=== PATIENT | male | born 1975 | race Caucasian/White ===

== ENCOUNTER 2017-10-09 09:54 | Emergency (ER) | payer OTHER, SELFPAY ==
[2017-10-09] MEDS ORDERED: hydrOXYzine HCl 25 MG TAB ONE (12:15)
[2017-10-09 12:33] LABS: Absolute Lymphocytes (CBC) 2.9 K/uL (0.7-4.9); Absolute Monocytes 0.6 K/uL (0.1-1.3); Absolute Neutrophil 7.4 K/uL (1.8-8.0); Basophils % 0.7 % (0-1.3); Eosinophils % 0.5 % (0-4.4); Hematocrit 45.3 % (39.6-49.0); Lymphocytes % 26.1 % (15.3-44.8); MCH 28.7 pg (27.0-35.0); MCV 85.9 fL (80-100); MPV 8.4 fL (7.6-11.3); Monocytes % 5.5 % (3.3-12.3); RBC Red Blood Cell Count 5.27 M/uL (4.33-5.43)
--- NOTE | 2017-10-09 12:37 | RAD REPORT ---
EXAM DESCRIPTION: Asa Single View10/09/2017 12:20 pm CLINICAL HISTORY: Cough COMPARISON: 2009 FINDINGS: There appear to be postsurgical changes involving the upper lobes. The lungs appear clear of acute infiltrate. The heart is normal size IMPRESSION: No acute abnormalities displayed
[2017-10-09] MEDS ORDERED: NA CHLORIDE 0.9% 1,000 ML ONE (12:46)
[2017-10-09] MEDS ORDERED: LORazepam 2 MG/ML VIAL ONE (12:46)
[2017-10-09 12:49] LABS: BUN Blood Urea Nitrogen 10 mg/dL (6-20); Glucose Level 101 mg/dL (65-120)
[2017-10-09 12:55] LABS: Bicarbonate 23 mEq/L (21-31); Potassium 4.2 mEq/L (3.6-5.0); Sodium Level 136 mEq/L (135-145)
[2017-10-09 13:07] LABS: Blood Morphology Comment NOT SEEN (NOT SEEN); Platelet Estimate ADEQ; Urine White Blood Cell Casts OK
[2017-10-09 13:56] LABS: Barbiturates NEGATIVE; Benzodiazepines NEGATIVE; Cocaine NEGATIVE; METHAMPHETAM NEGATIVE; Opiates NEGATIVE; Phencyclidine NEGATIVE; THC Cannibis POSITIVE
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
[2017-10-09 14:23] VITALS: O2SAT 100
[2017-10-09 14:24] VITALS: BP 119/71; TEMP 98.1
[2017-10-09 14:25] LABS: Urine Blood NEGATIVE (NEG); Urine Glucose NEGATIVE (NEG); Urine Protein NEGATIVE (NEG); Urine pH 6.5 (5.0-7.0)
== END 2017-10-09 14:18 | disposition home or self-care (01) ==
LOC: ER 09:54
DX: G47.00 Insomnia, unspecified (principal); F17.210 Nicotine dependence, cigarettes, uncomplicated
CPT/HCPCS: 36415; 71045; 80048; 80307; 81003; 85025; 87804; 96361; 96374; 99284; J7030

== ENCOUNTER 2019-01-19 09:36 | Emergency (ER) | payer SELFPAY ==
--- OUTSIDE RECORDS SUMMARY | 2019-01-19 09:39 | XMS REPORT ---
:1975 [facility] Address [address] [place] [address] [address] [place] [address] Care Team Providers Name Role Phone Unavailable Unavailable Unavailable Problems This patient has no known problems. Allergies, Adverse Reactions, Alerts This patient has no known allergies or adverse reactions. Medications This patient has no known medications. Encounters Start End Encounter Admission Attending Care Care Encounter Date/Time Date/Time Type Type Clinicians Facility Department ID 2019-01-11 2019-01-11 Emergency E [id number] 14:16:00 14:16:00
--- NOTE | 2019-01-19 10:14 | RAD REPORT ---
EXAM DESCRIPTION: RAD - Chest Single View - 01/19/2019 10:03 am CLINICAL HISTORY: CHEST PAIN Chest pain. COMPARISON: Chest Single View dated 10/09/2017; CHEST PA AND LAT 2 VIEW dated 03/20/2010 FINDINGS: Portable technique limits examination quality. The lungs are grossly clear. The heart is normal in size. No displaced fractures. IMPRESSION: No acute intrathoracic process suspected.
[2019-01-19 10:20] LABS: Protime INR 0.96
[2019-01-19 10:24] LABS: Absolute Lymphocytes (CBC) 2.7 K/uL (0.7-4.9); Basophils % 0.5 % (0-1.3); Hematocrit 47.6 % (39.6-49.0); Lymphocytes % 24.7 % (15.3-44.8); MPV 7.2 fL (7.6-11.3); RBC Red Blood Cell Count 5.44 M/uL (4.33-5.43)
[2019-01-19 10:41] LABS: ALT/SGPT 32 U/L (12-78); AST/SGOT 18 U/L (15-37); Albumin 3.5 g/dL (3.4-5.0); Alkaline Phosphatase 110 U/L (45-117); BUN Blood Urea Nitrogen 9 mg/dL (7-18); Bicarbonate 25 mmol/L (21-32); Bilirubin Direct < 0.1 mg/dL (0-0.2); Bilirubin Total 0.3 mg/dL (0.2-1.0); Glucose Level 133 mg/dL (74-106); Magnesium 2.5 mg/dL (1.8-2.4); NT PRO-BNP 15 pg/mL (<125); Potassium 3.8 mmol/L (3.5-5.1); Protein, Total 7.3 g/dL (6.4-8.2); Sodium Level 135 mmol/L (136-145); Troponin (Emerg Dept Use Only) < 0.02 ng/mL (0.0-0.045)
[2019-01-19] MEDS ORDERED: SUCRALFATE 1 GM TABLET ONE (12:04)
[2019-01-19 12:11] LABS: Urine Blood NEGATIVE (NEG); Urine Glucose NEGATIVE (NEG); Urine Protein NEGATIVE (NEG); Urine pH 6.5 (5.0-7.0)
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
--- NOTE | 2019-01-19 13:36 | RAD REPORT ---
EXAM DESCRIPTION: CT - Chest For Pe Angio - 01/19/2019 1:27 pm CLINICAL HISTORY: Chest pain. Cough;Chest pain COMPARISON: No comparisons TECHNIQUE: CT angiogram of the pulmonary arteries was performed with MIP. All CT scans are performed using dose optimization technique as appropriate and may include automated exposure control or mA/KV adjustment according to patient size. FINDINGS: No evidence of pulmonary thromboembolism. No acute aortic finding demonstrated. Interstitial markings are prominent which can indicate interstitial pneumonia. No significant pericardial or pleural fluid. No concerning bony finding. Small hiatal hernia. IMPRESSION: No evidence of pulmonary thromboembolism. Interstitial pneumonia/ bronchitis pattern is present.
[2019-01-19 14:02] LABS: Urine Bacteria NONE SEEN /HPF (NONE SEEN); Urine RBC NONE SEEN /HPF (NONE SEEN)
[2019-01-19 14:03] LABS: Urine Culture Reflex Order NOT NEEDED
[2019-01-19] MEDS ORDERED: CEFTRIAXONE/SWI 1gm 1 GM/10 ML SYR ONE (15:06)
[2019-01-19 16:16] VITALS: BP 125/78; TEMP 98; O2SAT 100
--- NOTE | 2019-01-20 10:52 | EKG ---
Test Date: 2019-01-19 Test Time: 09:50:35 Reinstatement Clerk: JORGE MEASUREMENT RESULTS: Intervals: Rate: 89 KS: 160 QRSD: 80 QT: 360 QTc: 438 [place]: P: 35 KS: 160 QRS: 94 T: 12 INTERPRETIVE STATEMENTS: Normal sinus rhythm Rightward axis Borderline ECG Compared to ECG 10/17/2004 14:28:00 Right-axis deviation now present Electronically Signed On 01-20-19 10:51:54 CDT by David Garcia
== END 2019-01-19 15:53 | disposition home or self-care (01) ==
LOC: ER 09:36
DX: J15.9 Unspecified bacterial pneumonia (principal); Z72.0 Tobacco use
CPT/HCPCS: 36415; 71045; 71275; 80048; 80076; 81003; 81015; 83735; 83880; 84443; 84484; 85025; 85379; 85610; 93005; 96365; 99285; J0696; Q9967

== ENCOUNTER 2019-02-11 12:10 | Emergency (ER) | payer SELFPAY ==
--- OUTSIDE RECORDS SUMMARY | 2019-02-11 12:12 | XMS REPORT ---
:1975 [facility] Address [address] [place] [address] [address] [place] [address] Care Team Providers Name Role Phone Unavailable [...]
[2019-02-11] MEDS ORDERED: IPRATROPIUM BROM 0.5MG/2.5ML ONE (12:38)
[2019-02-11] MEDS ORDERED: METHYLPREDNISOLONE 125 MG INJ ONE (12:38)
[2019-02-11] MEDS ORDERED: Levofloxacin 750mg IV 750 MG/150 ML BAG IV ONE (12:38)
[2019-02-11] MEDS ORDERED: ALBUTEROL 2.5 MG/3 ML NEB SOL ONE (12:38)
[2019-02-11 13:07] LABS: Absolute Lymphocytes (CBC) 1.8 K/uL (0.7-4.9); Basophils % 0.7 % (0-1.3); Lymphocytes % 20.1 % (15.3-44.8); MPV 7.5 fL (7.6-11.3); RBC Red Blood Cell Count 5.34 M/uL (4.33-5.43)
[2019-02-11 13:16] LABS: Protime INR 0.95
[2019-02-11] MEDS ORDERED: FAMOTIDINE 20 MG/2 ML VIAL IV ONE (13:23)
[2019-02-11] MEDS ORDERED: DIPHENHYDRAMINE 50 MG/ML VIAL ONE (13:23)
[2019-02-11] MEDS ORDERED: AZITHROMYCIN 250 MG TAB ONE (13:32)
[2019-02-11] MEDS ORDERED: CEFTRIAXONE/SWI 1gm 1 GM/10 ML SYR ONE (13:32)
[2019-02-11 13:34] LABS: ALT/SGPT 37 U/L (12-78); AST/SGOT 26 U/L (15-37); Albumin 3.8 g/dL (3.4-5.0); Alkaline Phosphatase 126 U/L (45-117); BUN Blood Urea Nitrogen 7 mg/dL (7-18); Bicarbonate 24 mmol/L (21-32); Bilirubin Direct 0.2 mg/dL (0-0.2); Bilirubin Total 0.6 mg/dL (0.2-1.0); Glucose Level 92 mg/dL (74-106); Magnesium 2.5 mg/dL (1.8-2.4); NT PRO-BNP 116 pg/mL (<125); Potassium 3.7 mmol/L (3.5-5.1); Protein, Total 7.5 g/dL (6.4-8.2); Sodium Level 138 mmol/L (136-145); Troponin (Emerg Dept Use Only) < 0.02 ng/mL (0.0-0.045)
--- NOTE | 2019-02-11 13:47 | EKG ---
Test Date: 2019-02-11 Test Time: 13:05:37 Cloth Bleaching Range Operator Chief: MARISSA MEASUREMENT RESULTS: Intervals: Rate: 78 SD: 162 QRSD: 80 QT: 384 QTc: 437 [place]: P: 64 SD: 162 QRS: 75 T: 44 INTERPRETIVE STATEMENTS: Normal sinus rhythm Normal ECG Compared to ECG 01/19/2019 09:50:35 Right-axis deviation no longer present Electronically Signed On 02-11-19 13:47:03 CDT by Ronen Rodriguez
--- NOTE | 2019-02-11 13:48 | RAD REPORT ---
EXAM DESCRIPTION: RAD - Chest Single View - 02/11/2019 1:03 pm CLINICAL HISTORY: Cough, possible lung infection COMPARISON: January 19 TECHNIQUE: AP portable chest image was obtained 1301 hours . FINDINGS: No focal lung parenchymal process seen. Lung markings are similar to comparison. Heart and vasculature are normal. No measurable pleural effusion and no pneumothorax. No acute bony abnormalit y seen. No acute aortic findings suspected. IMPRESSION: No acute cardiopulmonary process. No significant interval change.
--- NOTE | 2019-02-11 14:04 | RAD REPORT ---
EXAM DESCRIPTION: CT - Chest For Pe Angio - 02/11/2019 1:50 pm CLINICAL HISTORY: Cough, congestion, COPD, shortness of breath COMPARISON: Portable chest same date, PE study January 19 TECHNIQUE: Dynamically enhanced 3 mm thick images of the chest were obtained during administration o f approximately 150mL Isovue 370 IV contrast. Coronal and oblique MIP reconstruction images were gene rated and reviewed. Exam utilizes a protocol to evaluate the pulmonary arterial tree. All CT scans are performed using dose optimization technique as appropriate and may include automated exposure control or mA/KV adjustment according to patient size. FINDINGS: No pulmonary emboli are identified. The aorta as imaged shows no acute or suspicious finding. No pericardial thickening or effusion. No new mass or consolidation. The prominent interstitial edema or infiltrate pattern seen January 19 is not present on the current examination. Hazy ground-glass opacities along the posterior aspect of eac h lung field, believed to be atelectasis, much less pronounced than seen previously. No pleural effus ion or pleural thickening. No mediastinal or hilar suspicious masses. No chest wall masses or abnormal axillary lymphadenopathy. Small hiatal hernia is present. IMPRESSION: No pulmonary emboli identified. No new or progressive mass or consolidation. Lung markings and atelectasis changes in the posterior l antonia costa are less prominent than seen January 19.
--- NOTE | 2019-02-11 14:13 | ER ---
Nurse's Notes [facility] Name: Franco Thompson Age: 43 yrs Sex: Male : 1975 Arrival Date: 02/11/2019 Time: 12:16 Bed 8 Private MD: Diagnosis: Bronchitis, not specified as acute or chronic;Tobacco abuse counseling;Tobacco use Presentation: 02/11 12:21 Presenting complaint: Patient states: I have been fighting with this lung infection for la1 4 weeks, I took zithromax already and three of someone elses levaquin at home but its just not getting better. Transition of care: patient was not received from another setting of care. Onset of symptoms was February 11, 2019. Risk Assessment: Do you want to hurt yourself or someone else? Patient reports no desire to harm self or others. Initial Sepsis Screen: Does the patient meet any 2 criteria? No. Patient's initial sepsis screen is negative. Does the patient have a suspected source of infection? No. Patient's initial sepsis screen is negative. Care prior to arrival: None. 12:21 Method Of Arrival: Ambulatory la1 12:21 Acuity: NISSA 3 la1 Historical: - Allergies: 13:24 Levaquin; sv - PMHx: 12:20 neuropathy; Pneumothorax; la1 - PSHx: 12:20 lung sx; la1 - Immunization history:: Adult Immunizations up to date. - Social history:: Smoking status: Smoking status: Patient uses tobacco products, smokes one-half pack cigarettes per day. - Ebola Screening: : No symptoms or risks identified at this time. - Family history:: not pertinent. Screenin:00 Abuse screen: Denies threats or abuse. Denies injuries from another. Nutritional sv screening: No deficits noted. Tuberculosis screening: No symptoms or risk factors identified. Fall Risk None identified. Assessment: 12:40 General: Appears in no apparent distress. comfortable, slender, well groomed, well sv developed, Behavior is calm, cooperative, appropriate for age. Pain: Denies pain. Neuro: Level of Consciousness is awake, alert, obeys commands, Oriented to person, place, time, situation, Moves all extremities. Full function Gait is steady, Speech is normal. Cardiovascular: Heart tones S1 S2 present Patient's skin is warm and dry. Pulses are 3+ in right radial artery and left radial artery Rhythm is sinus rhythm. Respiratory: Airway is patent Respiratory effort is even, unlabored, Respiratory pattern is regular, symmetrical, Breath sounds are diminished bilaterally. Derm: Skin is pink, warm \T\ dry. Musculoskeletal: Range of motion: intact in all extremities. 13:20 Reassessment: Patient appears in no apparent distress at this time. Patient and/or sv family updated on plan of care and expected duration. Pain level reassessed. Patient is alert, oriented x 3, equal unlabored respirations, skin warm/dry/pink. 13:32 Reassessment: Pt c/o sudden SOB and itching, hives noted to left arm. NAD, VSS. hb Levofloxacin stopped, Dr. Murdock and Masha RODRIGUES notified. Orders given. 14:09 Reassessment: Patient appears in no apparent distress at this time. Patient and/or sv family updated on plan of care and expected duration. Pain level reassessed. Patient is alert, oriented x 3, equal unlabored respirations, skin warm/dry/pink. 14:30 Reassessment: Pt up for discharge, but Rocephin just given and will ensure no reaction sv to it and then will give Zithromax. 15:45 Reassessment: Patient appears in no apparent distress at this time. Patient and/or sv family updated on plan of care and expected duration. Pain level reassessed. Patient is alert, oriented x 3, equal unlabored respirations, skin warm/dry/pink. Patient states feeling better. Patient states symptoms have improved. Vital Signs: 12:21 BP 158 / 100; Pulse 88; Resp 16; Temp 98.4; Pulse Ox 98% on R/A; Weight 77.11 kg; la1 Height 6 ft. 1 in. (185.42 cm); 13:01 BP 151 / 91; Pulse 83; Resp 18; Pulse Ox 100% on Nebulizer Mask; sv 14:12 BP 126 / 81; Pulse 101; Resp 23; Pulse Ox 99% on 2 lpm NC; sv 15:18 BP 133 / 79; Pulse 91; Resp 21; Pulse Ox 96% on R/A; sv 12:21 Body Mass Index 22.43 (77.11 kg, 185.42 cm) la1 ED Course: 12:16 Patient arrived in ED. cf2 12:20 Arm band placed on left wrist. la1 12:22 Triage completed. la1 12:24 Mukul Murdock MD is Attending Physician. jarod 12:35 Patient has correct armband on for positive identification. Bed in low position. Call sv light in reach. hydration plant operator on. Pulse ox on. NIBP on. Door closed. Head of bed elevated. 12:35 First set of blood cultures drawn by me. jb1 12:37 EKG done, by special procedures technologist. reviewed by Mukul Murdock MD. vh 12:40 Masha Evangelista, LILIA is Primary Nurse. sv 12:50 Second set of blood cultures drawn by me. jb1 12:54 Initial lab(s) drawn, by nd, sent to lab. Inserted saline lock: 22 gauge in left jb1 forearm, using aseptic technique. Blood collected. 13:00 X-ray(s) taken. sv 13:01 X-ray completed. Portable x-ray completed in exam room. Patient tolerated procedure jb2 well. 13:03 XRAY Chest (1 view) In Process Unspecified. EDMS 13:[address] Scan. sv 13:55 CT Chest For PE Angio In Process Unspecified. EDMS 15:47 No provider procedures requiring assistance completed. IV discontinued, intact, sv bleeding controlled, No redness/swelling at site. Pressure dressing applied. Administered Medications: Discontinued: levofloxacin 750 mg 150 ml IVPB once over 90 mins 12:52 Drug: Albuterol - atroVENT (3:1) (2.5 mg - 0.5 mg) 3 ml Route: Nebulizer; sv 13:31 Follow up: Response: No adverse reaction sv 12:52 Drug: SOLU-Medrol 125 mg Route: IVP; Site: left forearm; sv 13:26 Follow up: Response: No adverse reaction sv 12:59 Drug: levofloxacin 750 mg Volume: 150 ml; Route: IVPB; Infused Over: 90 mins; Site: sv left forearm; 13:26 Drug: Benadryl 50 mg Route: IVP; Site: left forearm; la1 14:12 Follow up: Response: No adverse reaction sv 13:26 Drug: Pepcid 20 mg Route: IVP; Site: left forearm; la1 14:12 Follow up: Response: No adverse reaction sv 14:09 Drug: Rocephin 1 grams Route: IV; Rate: per protocol; Site: left forearm; sv 14:11 Follow up: Response: No adverse reaction; IV Status: Completed infusion; IV Intake: 10mlsv 15:14 Drug: Zithromax 500 mg Route: PO; sv 15:44 Follow up: Response: No adverse reaction sv Intake: 14:11 IV: 10ml; Total: 10ml. sv Outcome: 14:12 Discharge ordered by . jarod 15:46 Discharged to home ambulatory, with family. sv 15:46 Condition: stable 15:46 Condition: improved 15:46 Discharge instructions given to patient, family, Instructed on discharge instructions, follow up and referral plans. medication usage, Demonstrated understanding of instructions, follow-up care, medications, Prescriptions given X 4. 15:47 Patient left the ED. sv Signatures: Dispatcher [employer] EDMS Eric Chakraborty1 Masha Evangelista RN RN Mukul Murdock MD MD cha Buechter, Jesse jb2 Attema, Lee, RN RN laArlette Stein Heather, RN RN Mohinder Martínez cf2 Corrections: (The following items were deleted from the chart) 13:24 12:20 Allergies: No Known Allergies; la1 sv
--- NOTE | 2019-02-11 14:14 | EDPHYS ---
Physician Documentation [facility] Name: Franco Thompson Age: 43 yrs Sex: Male : 1975 Arrival Date: 02/11/2019 Time: 12:16 Bed 8 Private MD: ED Physician Mukul Murdock HPI: 02/11 12:39 This 43 yrs old Male presents to ER via Ambulatory with complaints of jarod Shortness Of Breath. 12:39 The patient has shortness of breath at rest, with light activity. Onset: The jarod symptoms/episode began/occurred 3 day(s) ago. Duration: The symptoms are continuous, and are steadily getting worse. The patient's shortness of breath has no apparent modifying factors. Associated signs and symptoms: The patient has no apparent associated signs or symptoms. Severity of symptoms: At their worst the symptoms were mild in the emergency department the symptoms are unchanged. The patient has experienced similar episodes in the past, multiple times. Historical: - Allergies: 13:24 Levaquin; sv - PMHx: 12:20 neuropathy; Pneumothorax; la1 - PSHx: 12:20 lung sx; la1 - Immunization history:: Adult Immunizations up to date. - Social history:: Smoking status: Smoking status: Patient uses tobacco products, smokes one-half pack cigarettes per day. - Ebola Screening: : No symptoms or risks identified at this time. - Family history:: not pertinent. ROS: 12:39 Constitutional: Negative for fever, chills, and weight loss, Eyes: Negative for injury, jarod pain, redness, and discharge, ENT: Negative for injury, pain, and discharge, Neck: Negative for injury, pain, and swelling, Cardiovascular: Negative for chest pain, palpitations, and edema, Abdomen/GI: Negative for abdominal pain, nausea, vomiting, diarrhea, and constipation, Back: Negative for injury and pain, : Negative for injury, bleeding, discharge, and swelling, MS/Extremity: Negative for injury and deformity, Skin: Negative for injury, rash, and discoloration, Neuro: Negative for headache, weakness, numbness, tingling, and seizure, Psych: Negative for depression, anxiety, suicide ideation, homicidal ideation, and hallucinations, Allergy/Immunology: Negative for hives, rash, and allergies, Endocrine: Negative for neck swelling, polydipsia, polyuria, polyphagia, and marked weight changes, Hematologic/Lymphatic: Negative for swollen nodes, abnormal bleeding, and unusual bruising. 12:39 Respiratory: Positive for cough, shortness of breath, wheezing, expiratory. Exam: 12:39 Constitutional: This is a well developed, well nourished patient who is awake, alert, jarod and in no acute distress. Head/Face: Normocephalic, atraumatic. Eyes: Pupils equal round and reactive to light, extra-ocular motions intact. Lids and lashes normal. Conjunctiva and sclera are non-icteric and not injected. Cornea within normal limits. Periorbital areas with no swelling, redness, or edema. ENT: Nares patent. No nasal discharge, no septal abnormalities noted. Tympanic membranes are normal and external auditory canals are clear. Oropharynx with no redness, swelling, or masses, exudates, or evidence of obstruction, uvula midline. Mucous membranes moist. Neck: Trachea midline, no thyromegaly or masses palpated, and no cervical lymphadenopathy. Supple, full range of motion without nuchal rigidity, or vertebral point tenderness. No Meningismus. Chest/axilla: Normal chest wall appearance and motion. Nontender with no deformity. No lesions are appreciated. Cardiovascular: Regular rate and rhythm with a normal S1 and S2. No gallops, murmurs, or rubs. Normal PMI, no JVD. No pulse deficits. Abdomen/GI: Soft, non-tender, with normal bowel sounds. No distension or tympany. No guarding or rebound. No evidence of tenderness throughout. Back: No spinal tenderness. No costovertebral tenderness. Full range of motion. Skin: Warm, dry with normal turgor. Normal color with no rashes, no lesions, and no evidence of cellulitis. MS/ Extremity: Pulses equal, no cyanosis. Neurovascular intact. Full, normal range of motion. Neuro: Awake and alert, GCS 15, oriented to person, place, time, and situation. Cranial nerves II-XII grossly intact. Motor strength 5/5 in all extremities. Sensory grossly intact. Cerebellar exam normal. Normal gait. Psych: Awake, alert, with orientation to person, place and time. Behavior, mood, and affect are within normal limits. 12:39 Respiratory: the patient does not display signs of respiratory distress, Respirations: normal, Breath sounds: bronchial sounds, decreased breath sounds, rhonchi, wheezing: inspiratory expiratory 12:41 Musculoskeletal/extremity: DVT Exam: No signs of deep vein thrombosis. no pain, no jarod swelling, no tenderness, negative Homans' sign noted on exam, no appreciated bluish discoloration, no erythema, no increased warmth. Vital Signs: 12:21 BP 158 / 100; Pulse 88; Resp 16; Temp 98.4; Pulse Ox 98% on R/A; Weight 77.11 kg; la1 Height 6 ft. 1 in. (185.42 cm); 13:01 BP 151 / 91; Pulse 83; Resp 18; Pulse Ox 100% on Nebulizer Mask; sv 14:12 BP 126 / 81; Pulse 101; Resp 23; Pulse Ox 99% on 2 lpm NC; sv 15:18 BP 133 / 79; Pulse 91; Resp 21; Pulse Ox 96% on R/A; sv 12:21 Body Mass Index 22.43 (77.11 kg, 185.42 cm) la1 MDM: 12:24 Patient medically screened. [facility] 12:41 Data reviewed: vital signs, nurses notes, lab test result(s), EKG, radiologic studies, [facility] CT scan, plain films. 02/11 12:35 Order name: Basic Metabolic Panel; Complete Time: 13:40 [facility] 02/11 12:35 Order name: CBC with Diff; Complete Time: 13:22 [facility] 02/11 12:35 Order name: LFT's; Complete Time: 13:40 [facility] 02/11 12:35 Order name: Magnesium; Complete Time: 13:40 [facility] 02/11 12:35 Order name: NT PRO-BNP; Complete Time: 13:40 [facility] 02/11 12:35 Order name: PT-INR; Complete Time: 13:22 [facility] 02/11 12:35 Order name: Troponin (emerg Dept Use Only); Complete Time: 13:40 [facility] 02/11 12:35 Order name: XRAY Chest (1 view); Complete Time: 14:12 [facility] 02/11 12:35 Order name: CT Chest For PE Angio; Complete Time: 14:12 [facility] 02/11 12:35 Order name: Blood Culture Adult (2) [facility] 02/11 12:35 Order name: EKG; Complete Time: 12:37 [facility] 02/11 12:35 Order name: Cardiac monitoring; Complete Time: 12:55 [facility] 02/11 12:35 Order name: EKG - Nurse/Tech; Complete Time: 13:04 [facility] 02/11 12:35 Order name: IV Saline Lock; Complete Time: 12:55 [facility] 02/11 12:35 Order name: Labs collected and sent; Complete Time: 12:55 [facility] 02/11 12:35 Order name: O2 Per Protocol; Complete Time: 12:55 [facility] 02/11 12:35 Order name: O2 Sat Monitoring; Complete Time: 12:55 [facility] Administered Medications: Discontinued: levofloxacin 750 mg 150 ml IVPB once over 90 mins 12:52 Drug: Albuterol - atroVENT (3:1) (2.5 mg - 0.5 mg) 3 ml Route: Nebulizer; sv 13:31 Follow up: Response: No adverse reaction sv 12:52 Drug: SOLU-Medrol 125 mg Route: IVP; Site: left forearm; sv 13:26 Follow up: Response: No adverse reaction sv 12:59 Drug: levofloxacin 750 mg Volume: 150 ml; Route: IVPB; Infused Over: 90 mins; Site: sv left forearm; 13:26 Drug: Benadryl 50 mg Route: IVP; Site: left forearm; la1 14:12 Follow up: Response: No adverse reaction sv 13:26 Drug: Pepcid 20 mg Route: IVP; Site: left forearm; la1 14:12 Follow up: Response: No adverse reaction sv 14:09 Drug: Rocephin 1 grams Route: IV; Rate: per protocol; Site: left forearm; sv 14:11 Follow up: Response: No adverse reaction; IV Status: Completed infusion; IV Intake: 10mlsv 15:14 Drug: Zithromax 500 mg Route: PO; sv 15:44 Follow up: Response: No adverse reaction sv Disposition: 02/11/19 14:12 Discharged to Home. Impression: Bronchitis, not specified as acute or chronic, Tobacco abuse counseling, Tobacco use. - Condition is Stable. - Discharge Instructions: Acute Bronchitis, Adult, How to Use an Inhaler, Steps to Quit Smoking, Smoking Hazards, Upper Respiratory Infection, Adult, Upper Respiratory Infection, Adult, Njhi-ce-Shuf, Steps to Quit Smoking, Mlba-on-Fvwp. - Prescriptions for Cheratussin AC 10- 100 mg/5 mL Oral liquid - take 10 milliliter by ORAL route every 4 hours; 150 milliliter. Prednisone 20 mg Oral Tablet - take 2 tablet by ORAL route once daily for 5 days; 10 tablet. Albuterol Sulfate 90 mcg/actuation - inhale 1-2 puff by INHALATION route every 4-6 hours; 1 Inhaler. Zithromax 500 mg Oral Tablet - take 1 tablet by ORAL route once daily for 4 days; 4 tablet. - Medication Reconciliation Form, Thank You Letter, Antibiotic Education, Prescription Opioid Use form. - Follow up: Private Physician; When: 2 - 3 days; Reason: Recheck today's complaints, Continuance of care, Re-evaluation by your physician. - Problem is new. - Symptoms have improved. Signatures: Dispatcher [employer] Masha Arteaga RN RN Mukul Santos MD MD cha Attema, Lee, RN RN la1 Corrections: (The following items were deleted from the chart) 13:24 12:20 Allergies: No Known Allergies; la1 sv 15:47 14:12 02/11/2019 14:12 Discharged to Home. Impression: Bronchitis, not specified as sv acute or chronic; Tobacco abuse counseling; Tobacco use. Condition is Stable. Discharge Instructions: Acute Bronchitis, Adult, How to Use an Inhaler, Steps to Quit Smoking, Smoking Hazards, Upper Respiratory Infection, Adult, Upper Respiratory Infection, Adult, Ofwh-re-Jfwi, Steps to Quit Smoking, Xuqo-gh-Wifs. Prescriptions for Cheratussin AC 10-100 mg/5 mL Oral liquid - take 10 milliliter by ORAL route every 4 hours; 150 milliliter, Prednisone 20 mg Oral Tablet - take 2 tablet by ORAL route once daily for 5 days; 10 tablet, Albuterol Sulfate 90 mcg/actuation - inhale 1-2 puff by INHALATION route every 4-6 hours; 1 Inhaler, Zithromax 500 mg Oral Tablet - take 1 tablet by ORAL route once daily for 4 days; 4 tablet. and Forms are Medication Reconciliation Form, Thank You Letter, Antibiotic Education, Prescription Opioid Use. Follow up: Private Physician; When: 2 - 3 days; Reason: Recheck today's complaints, Continuance of care, Re-evaluation by your physician. Problem is new. Symptoms have improved. jarod
[2019-02-11 17:04] VITALS: TEMP 98.4
[2019-02-11 17:07] VITALS: BP 133/79; O2SAT 96
== END 2019-02-11 15:47 | disposition home or self-care (01) ==
LOC: ER 12:10
DX: J40 Bronchitis, not specified as acute or chronic (principal); Z71.6 Tobacco abuse counseling; Z88.1 Allergy status to other antibiotic agents
CPT/HCPCS: 36415; 71045; 71275; 80048; 80076; 83735; 83880; 84484; 85025; 85610; 87040; 93005; 94640; 96374; 96375; 99285; J0696; J2930; Q9967

== ENCOUNTER 2019-06-21 13:17 | Emergency (ER) | payer SELFPAY ==
--- OUTSIDE RECORDS SUMMARY | 2019-06-21 13:25 | XMS REPORT ---
:1975 [facility] Address [address] [place] [address] [address] [place] [address] Care Team Providers Name Role Phone Unavailable [...]
[2019-06-21] MEDS ORDERED: HYDROCODONE/APAP 7.5/325 MG TAB ONE (14:46)
--- NOTE | 2019-06-21 14:57 | RAD REPORT ---
EXAM DESCRIPTION: RAD - Hand Right 3 View - 06/21/2019 2:39 pm CLINICAL HISTORY: Right hand pain, trauma COMPARISON: None. FINDINGS: Distal fifth metacarpal fracture is present with minimal 15 degree ventral angulation defo rmity. No measurable distraction. No other fracture change. No other acute bone or joint finding. No foreign body or other soft tissue abnormality. IMPRESSION: Distal fifth metacarpal fracture right hand. Minimal ventral angulation deformity.
--- NOTE | 2019-06-21 15:11 | ER ---
Nurse's Notes [facility] Name: Franco Thompson Age: 43 yrs Sex: Male : 1975 Arrival Date: 06/21/2019 Time: 13:18 Bed 13 Private MD: Diagnosis: right 5th MCP fracture Presentation: 06/21 13:36 Presenting complaint: Patient states: Righthand pain after hitting/punching a hard sg surface. Transition of care: patient was not received from another setting of care. Onset of symptoms was June 21, 2019. Risk Assessment: Do you want to hurt yourself or someone else? Patient reports no desire to harm self or others. Initial Sepsis Screen: Does the patient meet any 2 criteria? No. Patient's initial sepsis screen is negative. Does the patient have a suspected source of infection? No. Patient's initial sepsis screen is negative. Care prior to arrival: None. 13:36 Method Of Arrival: Ambulatory sg 13:36 Acuity: NISSA 4 sg 13:36 Note pt loud and cursing at this time due to pain in the hand, will obtain VS once pt sg calms and quiets. Triage Assessment: 13:39 General: Appears uncomfortable, slender, well groomed, well developed, well nourished, sg Behavior is cooperative, agitated. Pain: Complains of pain in left hand. Musculoskeletal: Circulation, motion, and sensation intact. Range of motion: intact in all extremities. 15:00 Injury Description: Abrasion sustained to right hand. ca1 Historical: - Allergies: 13:36 Levaquin; sg - PMHx: 13:36 neuropathy; Pneumothorax; sg - PSHx: 13:36 lung sx; sg - Immunization history:: Adult Immunizations not up to date. - Social history:: Smoking status: Patient uses tobacco products. - Ebola Screening: : Patient negative for fever greater than or equal to 101.5 degrees Fahrenheit, and additional compatible Ebola Virus Disease symptoms Patient denies exposure to infectious person Patient denies travel to an Ebola-affected area in the 21 days before illness onset No symptoms or risks identified at this time. Screenin:20 Abuse screen: Denies threats or abuse. Denies injuries from another. Nutritional ca1 screening: No deficits noted. Tuberculosis screening: No symptoms or risk factors identified. Fall Risk None identified. Assessment: 14:20 General: Appears in no apparent distress. comfortable, Behavior is calm, cooperative, ca1 appropriate for age. Pain: Complains of pain in right hand Pain currently is 8 out of 10 on a pain scale. Neuro: Level of Consciousness is awake, alert, obeys commands, Oriented to person, place, time, situation, Appropriate for age. Derm: Skin is intact, is healthy with good turgor, Skin is pink, warm \T\ dry. Musculoskeletal: Circulation, motion, and sensation intact. Capillary refill < 3 seconds, Range of motion: limited in PIP of right index finger, MCP of right index finger, PIP of right middle finger, MCP of right middle finger, PIP of right ring finger, MCP of right ring finger, PIP of right little finger and MCP of right little finger. 15:45 Reassessment: splint checked by rei Angela to dc home. hb Vital Signs: 14:53 BP 146 / 86; Pulse 122; Resp 17 S; Pulse Ox 95% on R/A; Weight 70.31 kg (R); Height 6 ca1 ft. 1 in. (185.42 cm) (R); Pain 8/10; 14:53 Body Mass Index 20.45 (70.31 kg, 185.42 cm) ca1 ED Course: 13:18 Patient arrived in ED. mr 13:35 Arm band placed on. sg 13:37 Triage completed. sg 14:05 Patient's name was called from ER lobby. No response. hb 14:18 Terrie Tian, RN is Primary Nurse. ca1 14:18 Benjamin Benton MD is Attending Physician. ps1 14:20 Patient has correct armband on for positive identification. Bed in low position. Call ca1 light in reach. Side rails up X 1. Pulse ox on. NIBP on. 14:20 No provider procedures requiring assistance completed. Patient did not have IV access ca1 during this emergency room visit. 14:37 Hand Right 3 View XRAY In Process Unspecified. EDMS 15:09 Arvind Richmond MD is Referral Physician. ps1 15:38 Orthoglass splint: Ulnar gutter/Boxer splint applied on right forearm. mh5 Administered Medications: 14:45 Drug: [place] (7.5 mg-325 mg) 1 tabs {Note: RASS - 0.} Route: PO; ca1 15:43 Follow up: Response: No adverse reaction hb Outcome: 15:09 Discharge ordered by . ps1 15:47 Discharged to home ambulatory, with family. hb 15:47 Condition: stable 15:47 Discharge instructions given to patient, family, Instructed on discharge instructions, follow up and referral plans. medication usage, splint care Demonstrated understanding of instructions, follow-up care, medications, splint care, Prescriptions given X 1. 15:48 Patient left the ED. hb Signatures: Dispatcher [employer] EDMS Gerardo Bond RN RN sg Rivera, Mary mr Baxter, Heather, RN RN hb Martinez, Maria [facility] Benjamin Benton MD MD ps1 Terrie Tian RN RN ca1 Corrections: (The following items were deleted from the chart) 15:54 13:36 Presenting complaint: Patient states: Left hand pain after hitting/punching a sg hard surface sg
--- NOTE | 2019-06-21 15:11 | EDPHYS ---
Physician Documentation [facility] Name: Franco Thompson Age: 43 yrs Sex: Male : 1975 Arrival Date: 06/21/2019 Time: 13:18 Bed 13 Private MD: ED Physician Benjamin Benton HPI: 06/21 15:11 This 43 yrs old Male presents to ER via Ambulatory with complaints of Hand ps1 Injury. 15:11 patient got upset and punched a wall. Patient has pain at 5th Metacarpal. Normal ps1 sensation. Pain with palpation. Closed deformity. Pain is rated as severe with movement. . Historical: - Allergies: 13:36 Levaquin; sg - PMHx: 13:36 neuropathy; Pneumothorax; sg - PSHx: 13:36 lung sx; sg - Immunization history:: Adult Immunizations not up to date. - Social history:: Smoking status: Patient uses tobacco products. - Ebola Screening: : Patient negative for fever greater than or equal to 101.5 degrees Fahrenheit, and additional compatible Ebola Virus Disease symptoms Patient denies exposure to infectious person Patient denies travel to an Ebola-affected area in the 21 days before illness onset No symptoms or risks identified at this time. ROS: 15:11 Constitutional: Negative for fever, chills, and weight loss, Eyes: Negative for injury, ps1 pain, redness, and discharge, Cardiovascular: Negative for chest pain, palpitations, and edema, Respiratory: Negative for shortness of breath, cough, wheezing, and pleuritic chest pain, Abdomen/GI: Negative for abdominal pain, nausea, vomiting, diarrhea, and constipation, Skin: Negative for injury, rash, and discoloration, Neuro: Negative for headache, weakness, numbness, tingling, and seizure. 15:11 MS/extremity: Positive for injury or acute deformity, tenderness, of the MCP of right little finger. Exam: 15:11 Constitutional: This is a well developed, well nourished patient who is awake, alert, ps1 and in no acute distress. Head/Face: Normocephalic, atraumatic. Eyes: Pupils equal round and reactive to light, extra-ocular motions intact. Lids and lashes normal. Conjunctiva and sclera are non-icteric and not injected. ENT: Nares patent. No nasal discharge, no septal abnormalities noted. Tympanic membranes are normal and external auditory canals are clear. Oropharynx with no redness, swelling, or masses, exudates, or evidence of obstruction, uvula midline. Mucous membranes moist. Cardiovascular: Regular rate and rhythm. No gallops, murmurs, or rubs. Normal PMI, no JVD. No pulse deficits. Respiratory: Lungs have equal breath sounds bilaterally, clear to auscultation and percussion. No rales, rhonchi or wheezes noted. No increased work of breathing, no retractions or nasal flaring. Abdomen/GI: Soft, non-tender, with normal bowel sounds. No distension or tympany. No guarding or rebound. No evidence of tenderness throughout. Skin: Warm, dry with normal turgor. Normal color with no rashes, no lesions, and no evidence of cellulitis. Neuro: Awake and alert, GCS 15, oriented to person, place, time, and situation. Cranial nerves II-XII grossly intact. Sensory grossly intact. 15:11 Musculoskeletal/extremity: Extremities: grossly normal except: noted in the MCP of right middle finger: deformity, pain. Vital Signs: 14:53 BP 146 / 86; Pulse 122; Resp 17 S; Pulse Ox 95% on R/A; Weight 70.31 kg (R); Height 6 ca1 ft. 1 in. (185.42 cm) (R); Pain 8/10; 14:53 Body Mass Index 20.45 (70.31 kg, 185.42 cm) ca1 Procedures: 15:16 Splinting: using Orthoglass splint, wrist splint, applied by nurse. Examined by me, ps1 post splint application: neurovascular intact, 2+ distal pulses palpable, brisk capillary refill noted. MDM: 14:39 Patient medically screened. ps1 15:21 Data reviewed: vital signs, nurses notes, radiologic studies, plain films, and as a ps1 result, I will discharge patient. Counseling: I had a detailed discussion with the patient and/or guardian regarding: the historical points, exam findings, and any diagnostic results supporting the discharge/admit diagnosis, radiology results, the need for outpatient follow up, to return to the emergency department if symptoms worsen or persist or if there are any questions or concerns that arise at home. 06/21 14:23 Order name: Hand Right 3 View XRAY; Complete Time: 15:04 ps1 12/30 15:41 Order name: Splint; Complete Time: 15:42 ca1 Administered Medications: 14:45 Drug: [place] (7.5 mg-325 mg) 1 tabs {Note: RASS - 0.} Route: PO; ca1 15:43 Follow up: Response: No adverse reaction hb Disposition: 06/21/19 15:09 Discharged to Home. Impression: right 5th MCP fracture. - Condition is Stable. - Discharge Instructions: Metacarpal Fracture, [id number]. - Prescriptions for Tramadol 50 mg Oral Tablet - take 1 tablet by ORAL route every 8 hours as needed; 12 tablet. - Medication Reconciliation Form, Thank You Letter, Antibiotic Education, Prescription Opioid Use form. - Follow up: Arvind Richmond MD; When: 1 week; Reason: Further diagnostic work-up, Recheck today's complaints, Continuance of care. Follow up: Emergency Department; When: As needed; Reason: Fever > 102 F, Worsening of condition. - Problem is new. - Symptoms have improved. Signatures: Dispatcher [employer] EDAZ Gerardo Bond RN RN Elida Smith RN RN Benjamin Benton MD MD ps1 Terrie Tian RN RN ca1 Corrections: (The following items were deleted from the chart) 15:48 15:09 06/21/2019 15:09 Discharged to Home. Impression: right 5th MCP fracture. hb Condition is Stable. Forms are Medication Reconciliation Form, Thank You Letter, Antibiotic Education, Prescription Opioid Use. Follow up: Arvind Richmond; When: 1 week; Reason: Further diagnostic work-up, Recheck today's complaints, Continuance of care. Follow up: Emergency Department; When: As needed; Reason: Fever > 102 F, Worsening of condition. Problem is new. Symptoms have improved. ps1
[2019-06-21 16:09] VITALS: BP 146/86; O2SAT 95
== END 2019-06-21 15:48 | disposition home or self-care (01) ==
LOC: ER 13:17
PROC: 2W3JX1Z Immobilization of Right Finger using Splint (ICD-10-PCS; principal; 2019-06-21)
DX: S62.306A Unspecified fracture of fifth metacarpal bone, right hand, initial encounter for closed fracture (principal); W22.8XXA Striking against or struck by other objects, initial encounter; Y93.89 Activity, other specified; Y92.9 Unspecified place or not applicable; Z88.1 Allergy status to other antibiotic agents
CPT/HCPCS: 99284

== ENCOUNTER 2020-01-24 08:02 | Emergency (ER) | payer SELFPAY ==
--- OUTSIDE RECORDS SUMMARY | 2020-01-24 08:04 | XMS REPORT | Continuity of Care Document ---
:1975 Author Organization [facility] t Address [address] [place] [address] Care Team Providers Name Role Phone Carol Levine MD Attending Clinician Sahara Kearney Attending Clinician Problems This patient has no known problems. Allergies, Adverse Reactions, Alerts This patient has no known allergies or adverse reactions. Medications This patient has no known medications. Procedures This patient has no known procedures. Encounters Start End Encounter Admission Attending Care Care Encounter Source Date/Time Date/Time Type Type Clinicians Facility Department ID 2019-09-06 2019-09-06 [facility] [id number] 15:59:00 23:59:00 Encounter Arvind Medina [facility] [id number] Surgical [id number] Specialti [id number] [address] [place] 2019-09-06 2019-09-06 Office Keisha [facility] [id number] 15:50:51 16:05:51 Visit Daren Shoemaker [facility] [id number] Surgical [id number] Specialti [id number] [address] [place] 2019-01-11 2019-01-11 Emergency E [id number] [facility] 14:16:00 14:16:00 Results This patient has no known results.
[2020-01-24 09:11] LABS: Absolute Lymphocytes (CBC) 2.1 K/uL (0.7-4.9); Basophils % 0.9 % (0-1.3); Hematocrit 49.2 % (39.6-49.0); Lymphocytes % 15.4 % (15.3-44.8); MPV 7.3 fL (7.6-11.3); RBC Red Blood Cell Count 5.69 M/uL (4.33-5.43)
[2020-01-24] MEDS ORDERED: NA CHLORIDE 0.9% 1,000 ML ONE (09:19)
[2020-01-24 09:33] LABS: ALT/SGPT 19 U/L (12-78); AST/SGOT 19 U/L (15-37); Albumin 3.9 g/dL (3.4-5.0); Alkaline Phosphatase 115 U/L (45-117); BUN Blood Urea Nitrogen 4 mg/dL (7-18); Bicarbonate 27 mmol/L (21-32); Bilirubin Direct 0.2 mg/dL (0-0.2); Bilirubin Total 0.7 mg/dL (0.2-1.0); Glucose Level 101 mg/dL (74-106); Lipase 133 U/L (73-393); Magnesium 2.3 mg/dL (1.8-2.4); Sodium Level 137 mmol/L (136-145); Troponin (Emerg Dept Use Only) < 0.02 ng/mL (0.0-0.045)
--- NOTE | 2020-01-24 10:23 | RAD REPORT ---
EXAM DESCRIPTION: CT - Abdomen Pelvis W Contrast - 01/24/2020 10:11 am CLINICAL HISTORY: ABD PAIN COMPARISON: No comparisons TECHNIQUE: Biphasic, helical CT imaging of the abdomen and pelvis was performed following 100 ml non -ionic IV contrast. No oral contrast administered. All CT scans are performed using dose optimization technique as appropriate and may include automated exposure control or mA/KV adjustment according to patient size. FINDINGS: No suspicious findings in the lung bases. The liver, spleen, and pancreas show no suspicious findings. Gallbladder and biliary tree are also wi thout suspicious finding. Gallstones can be occult on CT imaging. Symmetric renal function is seen with no hydronephrosis or suspicious renal mass. No pyelonephritis o r acute parenchymal process. Urinary bladder is distended. No wall thickening or mass. No bladder marin culi. No adrenal abnormalities. No dilated bowel loops or bowel wall thickening. Appendix is normal. No free air, free fluid or infla mmatory stranding. No mass or bulky lymphadenopathy. Patient has a 2.5 centimeter periumbilical fat only hernia. Neck is 8 mm in diameter. No congested or edematous fat distinguishable. No fracture or acute bone process identifiable. Disc bulge changes are present at L3-4 and L4-5. No c entral spinal stenosis or significant foraminal encroachment. IMPRESSION: Contrast enhanced CT abdomen and pelvis showing no acute or emergent finding finding. No specific finding to explain patient symptom pattern. Disc bulge changes are present at L3-4 and L4-5 without canal or foramen stenoses identifiable. No ac [place] bone finding.
--- NOTE | 2020-01-24 10:25 | RAD REPORT ---
EXAM DESCRIPTION: RAD - Chest Single View - 01/24/2020 10:03 am CLINICAL HISTORY: ABDOMINAL DISTENTION COMPARISON: January 2019 TECHNIQUE: AP portable chest image was obtained 01/24/2020 10:03 am . FINDINGS: No focal lung parenchymal process. Interstitial pattern matches comparison. Surgical stapl e line seen in the upper lung costa similar to comparison. Heart and vasculature are normal. No parminder urable pleural effusion and no pneumothorax. No acute bony abnormality seen. No acute aortic findings suspected. IMPRESSION: No acute cardiopulmonary process. No significant change from comparison.
--- NOTE | 2020-01-24 10:26 | RAD REPORT ---
EXAM DESCRIPTION: RAD - Abdomen 1 View (KUB) - 01/24/2020 10:03 am CLINICAL HISTORY: ABD PAIN COMPARISON: No comparisons FINDINGS: Bowel gas pattern is non-specific. No obstruction, free air or pneumatosis. No suspicious calcifications. Liver size is mildly prominent. No significant bony findings IMPRESSION: Negative KUB examination for acute finding.
--- NOTE | 2020-01-24 10:29 | ER ---
Nurse's Notes [facility] Name: Franco Thompson Age: 44 yrs Sex: Male : 1975 Arrival Date: 01/24/2020 Time: 08:05 Bed 13 Private MD: Diagnosis: Vomiting;Abdominal tenderness;Heat exhaustion, unspecified Presentation: 01/23 08:30 Chief complaint: Patient states: nausea/vomiting, upper abd pain, and right mid-back aa5 pain that began 2 days ago. Pt also states "I always have a cough but it's getting worse", reports pressure feeling to throat, chills, and dizziness. 08:30 Coronavirus screen: Client denies travel out of the [place] in the last 14 days. chills, aa5 cough unrelated to allergies, nausea, vomiting. Client presents with at least one sign or symptom that may indicate coronavirus-19. Standard/surgical mask placed on the client. Provider contacted for isolation considerations. The client denies any previous COVID testing. Ebola Screen: Patient negative for fever greater than or equal to 101.5 degrees Fahrenheit, and additional compatible Ebola Virus Disease symptoms. Initial Sepsis Screen: Does the patient meet any 2 criteria? No. Patient's initial sepsis screen is negative. Does the patient have a suspected source of infection? No. Patient's initial sepsis screen is negative. Risk Assessment: Do you want to hurt yourself or someone else? Patient reports no desire to harm self or others. Onset of symptoms was January 2020. 08:30 Method Of Arrival: Ambulatory aa5 08:30 Acuity: NISSA 3 aa5 Historical: - Allergies: 08:30 Levaquin; aa5 - PMHx: 08:30 neuropathy; Pneumothorax; aa5 - PSHx: 08:30 lung sx; aa5 - Immunization history:: Adult Immunizations unknown. - Family history:: not pertinent. - Social history:: Smoking status: Patient reports the use of cigarette tobacco products, smokes one-half pack cigarettes per day. Screenin:00 Abuse screen: Denies threats or abuse. Nutritional screening: No deficits noted. aa5 Tuberculosis screening: No symptoms or risk factors identified. Fall Risk None identified. Assessment: 08:30 General: Appears uncomfortable, Behavior is calm, cooperative, Reports chills for 2-3 aa5 days. Pain: Complains of pain in right upper quadrant and left upper quadrant and right mid-back Pain does not radiate. Pain currently is 5 out of 10 on a pain scale. Quality of pain is described as crampy, Pain began 2-3 days ago. Is intermittent. Neuro: Level of Consciousness is awake, alert, obeys commands, Oriented to person, place, time, situation. Cardiovascular: Heart tones S1 S2 present Rhythm is sinus rhythm. Respiratory: Reports cough that is productive, Airway is patent Respiratory effort is even, unlabored, Respiratory pattern is regular, symmetrical, Denies shortness of breath. GI: Abdomen is flat, non-distended, Bowel sounds present X 4 quads. Abd is soft and non tender X 4 quads. Reports nausea, vomiting, Patient currently denies diarrhea. : No signs and/or symptoms were reported regarding the genitourinary system. EENT: No signs and/or symptoms were reported regarding the EENT system. Derm: Skin is pink, warm \\T\\ dry. Musculoskeletal: Range of motion: intact in all extremities. 09:00 Reassessment: Patient is alert, oriented x 3, equal unlabored respirations, skin aa5 warm/dry/pink. 10:30 Reassessment: Patient is alert, oriented x 3, equal unlabored respirations, skin aa5 warm/dry/pink. Pt sitting up in bed. . 11:10 Reassessment: Patient is alert, oriented x 3, equal unlabored respirations, skin aa5 warm/dry/pink. Vital Signs: 08:30 BP 144 / 95; Pulse 66; Resp 20 S; Temp 98.6(O); Pulse Ox 95% on R/A; aa5 11:00 BP 142 / 92; Pulse 72; Resp 18 S; Pulse Ox 97% on R/A; Pain 0/10; aa5 ED Course: 08:05 Patient arrived in ED. ag5 08:29 Ana Penny, RN is Primary Nurse. [email or web address] 08:30 Patient has correct armband on for positive identification. Placed in gown. Bed in low aa5 position. Call light in reach. Side rails up X2. teaching aide on. Pulse ox on. NIBP on. 08:33 Mukul Murdock MD is Attending Physician. jarod 09:00 Initial lab(s) drawn, by me, sent to lab. Inserted saline lock: 20 gauge in right aa5 forearm, using aseptic technique. Blood collected. 09:07 Triage completed. aa5 09:30 Flu and/or RSV swab sent to lab. Strep swab sent to lab. covid-19 swab collected and aa5 sent to lab. 10:02 XRAY Chest (1 view) In Process Unspecified. EDMS 10:02 Abdomen 1 View (KUB) XRAY In Process Unspecified. EDMS 10:11 CT Abd/Pelvis - IV Contrast Only In Process Unspecified. EDMS 11:10 No provider procedures requiring assistance completed. IV discontinued, intact, aa5 bleeding controlled, No redness/swelling at site. Pressure dressing applied. Administered Medications: 09:20 Drug: NS 0.9% 1000 ml Route: IV; Rate: 1 bolus; Site: right forearm; aa5 10:30 Follow up: IV Status: Completed infusion; IV Intake: 1000ml aa5 Intake: 10:30 IV: 1000ml; Total: 1000ml. aa5 Outcome: 10:28 Discharge ordered by . jarod 11:10 Discharged to home ambulatory. aa5 11:10 Condition: stable 11:10 Discharge instructions given to patient, Instructed on discharge instructions, follow up and referral plans. medication usage, Demonstrated understanding of instructions, follow-up care, medications, Prescriptions given X 3, Pt also instructed about wait time for COVID-19 results and instructed to quarantine until facility calls him with results. 11:13 Patient left the ED. aa5 Signatures: Dispatcher [employer] [facility] Mukul Murdock MD MD cha Calderon, Audri, RN RN aa5 Ray Kevin Ana Gunn, RN RN [email or web address]
--- NOTE | 2020-01-24 10:29 | EDPHYS ---
Physician Documentation [facility] Name: Franco Thompson Age: 44 yrs Sex: Male : 1975 Arrival Date: 01/24/2020 Time: 08:05 Bed 13 Private MD: ED Physician Mukul Murdock HPI: 01/23 08:44 This 44 yrs old Male presents to ER via Unassigned with complaints of jarod Nausea/Vomiting, Abdominal Pain, Back Pain. 08:44 The patient presents to the emergency department with nausea, vomiting, diarrhea, that jarod is continuous. Onset: The symptoms/episode began/occurred 2 day(s) ago. Possible causes: unknown. The symptoms are aggravated by nothing. The symptoms are alleviated by nothing. Associated signs and symptoms: Pertinent positives: abdominal pain, anorexia, nausea, vomiting. Severity of symptoms: At their worst the symptoms were mild moderate in the emergency department the symptoms are unchanged. The patient has not experienced similar symptoms in the past. Historical: - Allergies: 08:30 Levaquin; aa5 - PMHx: 08:30 neuropathy; Pneumothorax; aa5 - PSHx: 08:30 lung sx; aa5 - Immunization history:: Adult Immunizations unknown. - Family history:: not pertinent. - Social history:: Smoking status: Patient reports the use of cigarette tobacco products, smokes one-half pack cigarettes per day. ROS: 08:45 Constitutional: Negative for fever, chills, and weight loss, Eyes: Negative for injury, jarod pain, redness, and discharge, ENT: Negative for injury, pain, and discharge, Neck: Negative for injury, pain, and swelling, Cardiovascular: Negative for chest pain, palpitations, and edema, Respiratory: Negative for shortness of breath, cough, wheezing, and pleuritic chest pain, Back: Negative for injury and pain, : Negative for injury, bleeding, discharge, and swelling, MS/Extremity: Negative for injury and deformity, Skin: Negative for injury, rash, and discoloration, Psych: Negative for depression, anxiety, suicide ideation, homicidal ideation, and hallucinations, Allergy/Immunology: Negative for hives, rash, and allergies, Endocrine: Negative for neck swelling, polydipsia, polyuria, polyphagia, and marked weight changes, Hematologic/Lymphatic: Negative for swollen nodes, abnormal bleeding, and unusual bruising. 08:45 Abdomen/GI: Positive for nausea and vomiting, abdominal cramps. 08:45 Back: Positive for pain at rest. 08:45 Skin: Negative for diaphoresis, discoloration, ecchymosis, erythema, hematoma, jaundice. Exam: 08:45 Constitutional: This is a well developed, well nourished patient who is awake, alert, jarod and in no acute distress. Head/Face: Normocephalic, atraumatic. Eyes: Pupils equal round and reactive to light, extra-ocular motions intact. Lids and lashes normal. Conjunctiva and sclera are non-icteric and not injected. Cornea within normal limits. Periorbital areas with no swelling, redness, or edema. ENT: Nares patent. No nasal discharge, no septal abnormalities noted. Tympanic membranes are normal and external auditory canals are clear. Oropharynx with no redness, swelling, or masses, exudates, or evidence of obstruction, uvula midline. Mucous membranes moist. Neck: Trachea midline, no thyromegaly or masses palpated, and no cervical lymphadenopathy. Supple, full range of motion without nuchal rigidity, or vertebral point tenderness. No Meningismus. Chest/axilla: Normal chest wall appearance and motion. Nontender with no deformity. No lesions are appreciated. Cardiovascular: Regular rate and rhythm with a normal S1 and S2. No gallops, murmurs, or rubs. Normal PMI, no JVD. No pulse deficits. Respiratory: Lungs have equal breath sounds bilaterally, clear to auscultation and percussion. No rales, rhonchi or wheezes noted. No increased work of breathing, no retractions or nasal flaring. Back: No spinal tenderness. No costovertebral tenderness. Full range of motion. Male : Normal genitalia with no discharge or lesions. Skin: Warm, dry with normal turgor. Normal color with no rashes, no lesions, and no evidence of cellulitis. MS/ Extremity: Pulses equal, no cyanosis. Neurovascular intact. Full, normal range of motion. Neuro: Awake and alert, GCS 15, oriented to person, place, time, and situation. Cranial nerves II-XII grossly intact. Motor strength 5/5 in all extremities. Sensory grossly intact. Cerebellar exam normal. Normal gait. Psych: Awake, alert, with orientation to person, place and time. Behavior, mood, and affect are within normal limits. 08:45 Abdomen/GI: Inspection: abdomen appears normal, Bowel sounds: normal, active, Palpation: mild abdominal tenderness, in all quadrants, Liver: no appreciated palpable abnormalities, Hernia: not appreciated. Vital Signs: 08:30 BP 144 / 95; Pulse 66; Resp 20 S; Temp 98.6(O); Pulse Ox 95% on R/A; aa5 11:00 BP 142 / 92; Pulse 72; Resp 18 S; Pulse Ox 97% on R/A; Pain 0/10; aa5 MDM: 08:33 Patient medically screened. jarod 08:47 Data reviewed: vital signs, nurses notes, lab test result(s), EKG, radiologic studies. jarod 10:25 Differential diagnosis: Nonspecific abd pain, gastritis, pancreatitis, viral jarod gastroenteritis, gastroenteritis, Basilar Pneumonia chronic back pain, Fatigue. Differential diagnosis: generalized weakness, hypovolemia, idiopathic dizziness, , vertigo. Data interpreted: strategic planner: rate is 66 beats/min, rhythm is normal sinus rhythm, Pulse oximetry: on room air is 95 %. Test interpretation: by ED physician or midlevel provider: ECG. Counseling: I had a detailed discussion with the patient and/or guardian regarding: the historical points, exam findings, and any diagnostic results supporting the discharge/admit diagnosis, lab results, radiology results, the need for outpatient follow up, for definitive care, a family practitioner. Medication response: Zofran relieved the patient's nausea. 01/23 08:43 Order name: Basic Metabolic Panel; Complete Time: 09:34 [facility] 01/23 08:43 Order name: CBC with Diff; Complete Time: 09:29 [facility] 01/23 08:43 Order name: LFT's; Complete Time: 09:34 [facility] 01/23 08:43 Order name: Magnesium; Complete Time: 09:34 [facility] 01/23 08:43 Order name: Troponin (emerg Dept Use Only); Complete Time: 09:34 [facility] 01/23 08:43 Order name: Lipase; Complete Time: 09:34 [facility] 01/23 08:43 Order name: XRAY Chest (1 view) [facility] 01/23 08:43 Order name: Abdomen 1 View (KUB) XRAY [facility] 01/23 09:29 Order name: Strep [facility] 01/23 09:29 Order name: Influenza Screen (a \T\ B) [facility] 01/23 09:29 Order name: COVID-19 [facility] 01/23 09:34 Order name: CT Abd/Pelvis - IV Contrast Only [facility] 01/23 10:28 Order name: Throat Culture [facility] 01/23 08:43 Order name: EKG; Complete Time: 08:44 [facility] 01/23 08:43 Order name: Cardiac monitoring; Complete Time: 09:30 [facility] 01/23 08:43 Order name: EKG - Nurse/Tech; Complete Time: 09:30 [facility] 01/23 08:43 Order name: IV Saline Lock; Complete Time: 09:03 [facility] 01/23 08:43 Order name: Labs collected and sent; Complete Time: 09:03 [facility] 01/23 08:43 Order name: O2 Per Protocol; Complete Time: 09:03 [facility] 01/23 08:43 Order name: O2 Sat Monitoring; Complete Time: 09:03 [facility] Administered Medications: 09:20 Drug: NS 0.9% 1000 ml Route: IV; Rate: 1 bolus; Site: right forearm; aa5 10:30 Follow up: IV Status: Completed infusion; IV Intake: 1000ml aa5 Disposition: 01/24/20 10:28 Discharged to Home. Impression: Vomiting, Abdominal tenderness, Heat exhaustion, unspecified. - Condition is Stable. - Discharge Instructions: Abdominal Pain, Adult, Nausea and Vomiting, Adult, Nausea and Vomiting, Adult, [id number], Abdominal Pain, Adult, [id number], COVID-19. - Prescriptions for Bentyl 20 mg Oral Tablet - take 1 tablet by ORAL route every 6 hours As needed; 20 tablet. Pepcid 20 mg Oral Tablet - take 1 tablet by ORAL route every 12 hours for 10 days; 20 tablet. Zofran 4 mg Oral Tablet - take 1 tablet by ORAL route every 12 hours As needed; 20 tablet. - Medication Reconciliation Form, Thank You Letter, Antibiotic Education, Prescription Opioid Use form. - Follow up: Private Physician; When: 2 - 3 days; Reason: Recheck today's complaints, Continuance of care, Re-evaluation by your physician. - Problem is new. - Symptoms have improved. Signatures: Dispatcher [employer] [facility] Mukul Murdock MD MD cha Calderon, Audri, RN RN aa5 Corrections: (The following items were deleted from the chart) 11:13 08:43 Urine Dipstick-Ancillary ordered. jarod aa5 11:13 10:28 01/24/2020 10:28 Discharged to Home. Impression: Vomiting; Abdominal tenderness; aa5 Heat exhaustion, unspecified. Condition is Stable. Forms are Medication Reconciliation Form, Thank You Letter, Antibiotic Education, Prescription Opioid Use. Follow up: Private Physician; When: 2 - 3 days; Reason: Recheck today's complaints, Continuance of care, Re-evaluation by your physician. Problem is new. Symptoms have improved. jarod
[2020-01-24 11:22] VITALS: BP 144/95; TEMP 98.6; O2SAT 95
--- NOTE | 2020-01-25 11:05 | EKG ---
Test Date: 2020-01-24 Test Time: 09:21:18 [place]: ALBERTA MEASUREMENT RESULTS: Intervals: Rate: 67 [place]: 164 QRSD: 80 QT: 414 QTc: 437 [place]: P: 57 NJ: 164 QRS: 63 T: 61 INTERPRETIVE STATEMENTS: Normal sinus rhythm Septal infarct, age undetermined Abnormal ECG Compared to ECG 02/11/2019 13:05:37 Myocardial infarct finding now present Electronically Signed On 01-25-20 11:02:09 CDT by Ronen Rodriguez
== END 2020-01-24 11:13 | disposition home or self-care (01) ==
LOC: ER 08:02
DX: R10.819 Abdominal tenderness, unspecified site (principal); Z20.828 Contact with and (suspected) exposure to other viral communicable diseases; X30.XXXA Exposure to excessive natural heat, initial encounter; Z88.1 Allergy status to other antibiotic agents; F17.210 Nicotine dependence, cigarettes, uncomplicated
CPT/HCPCS: 36415; 71045; 74018; 74177; 80048; 80076; 83690; 83735; 84484; 85025; 87070; 87081; 87804; 93005; 96360; 99284; J7030; Q9967; U0002

== ENCOUNTER 2021-08-14 12:17 | Emergency (ER) | payer OTHER, SELFPAY ==
--- OUTSIDE RECORDS SUMMARY | 2021-08-14 12:19 | XMS REPORT | Continuity of Care Document ---
:1975 Author Organization [facility] t Address [address] [place] [address] Care Team Providers Name Role Phone PCP, DOES NOT HAVE A Primary Care Physician Unavailable Abner MCQUEEN, L Attending Clinician Keisha CHRISTINE S Attending Clinician Sahara VALDES Attending Clinician Unavailable Problems This patient has no known problems. Allergies, Adverse Reactions, Alerts Allergy Allergy Status Severity Reaction(s) Onset Inactive Treating Comm ents Source Name Type Date Date Clinician Levoflox Propensi Active Palpitations 2018-0 Univers acin ty to 03-19 ity of adverse 00:00: [place] reaction [address] [place] [address] LEVOFLOX DRUG Active Hives 2018-0 Univers ACIN INGREDI 03-19 ity of 00:00: [address] Social History Social Habit Start Date Stop Date Quantity Comments Source Sex Assigned At Uni [facility] Smoking Status Start Date Stop Date Source Current every day smoker 2019-09-06 00:00:00 Uni [facility] Medications Ordered Filled Start Stop Current Ordering Indication Dosage Frequency Signature Comments Components Source Medication Medication Date Date Medication? Clinician (SIG) Name Name traMADol 50 2018-06 Yes TK ONE T Un [place] mg tablet 2-30 PO Q 8 H ity of 00:00: PRN P [address] traMADol 50 2018-06 Yes TK ONE T Un ksen[place] mg tablet 2-30 PO Q 8 H ity of 00:00: PRN P [place] [facility] traMADol 50 2018-06 Yes TK ONE T Un [place] mg tablet 2-30 PO Q 8 H ity of 00:00: PRN P [place] [facility] traMADol 50 2018-06 Yes TK ONE T Un [place] mg tablet 2-30 PO Q 8 H ity of 00:00: PRN P [place] [facility] traMADol 50 2018-06 Yes TK ONE T Un [place] mg tablet 2-30 PO Q 8 H ity of 00:00: PRN P [place] 00 [facility] traMADol 50 2018-06 Yes TK ONE T Un [place] mg tablet 2-30 PO Q 8 H ity of 00:00: PRN P [place] 00 [facility] sulfamethox 0 Yes [id number] 1{tbl} Take 1 Univers azole-trime 9-27 tablet by ity of thoprim 00:00: mouth [place] 400-80 mg 00 every 12 Medica l per tablet (twelve) Branc h hours. acetaminoph Yes [id number] 1{tbl} Take 1 Univers en-codeine 9-27 tablet by ity of (TYLENOL-CO 00:00: mouth [place] DEINE #3) 00 every 4 Medical 300-30 mg (four) Branch tablet hours as needed for Pain (scale 7-10). ondansetron Yes [id number] 4mg Take 1 Univers 4 mg 9-27 tablet by ity of disintegrat 00:00: mouth [place] ing tablet 00 every 8 Medica l (eight) Branch hours as needed for Nausea and Vomiting (N/V). sulfamethox 20190 Yes [id number] 1{tbl} Take 1 Univers azole-trime 9-27 tablet by ity of thoprim 00:00: mouth [place] 400-80 mg 00 every 12 Medica l per tablet (twelve) Branc h hours. acetaminoph 20190 Yes [id number] 1{tbl} Take 1 Univers en-codeine 9-27 tablet by ity of (TYLENOL-CO 00:00: mouth [place] DEINE #3) 00 every 4 Medical 300-30 mg (four) Branch tablet hours as needed for Pain (scale 7-10). ondansetron 2019-0 Yes [id number] 4mg Take 1 Univers 4 mg 9-27 tablet by ity of disintegrat 00:00: mouth [place] ing tablet 00 every 8 Medica l (eight) Branch hours as needed for Nausea and Vomiting (N/V). sulfamethox 2019-0 Yes [id number] 1{tbl} Take 1 Univers azole-trime 9-27 tablet by ity of thoprim 00:00: mouth [place] 400-80 mg 00 every 12 Medica l per tablet (twelve) Branc h hours. acetaminoph 2019-0 Yes [id number] 1{tbl} Take 1 Univers en-codeine 9-27 tablet by ity of (TYLENOL-CO 00:00: mouth [place] DEINE #3) 00 every 4 Medical 300-30 mg (four) Branch tablet hours as needed for Pain (scale 7-10). ondansetron 2019-0 Yes [id number] 4mg Take 1 Univers 4 mg 9-27 tablet by ity of disintegrat 00:00: mouth [place] ing tablet 00 every 8 Medica l (eight) Branch hours as needed for Nausea and Vomiting (N/V). sulfamethox 2019-0 Yes [id number] 1{tbl} Take 1 Univers azole-trime 9-27 tablet by ity of thoprim 00:00: mouth [place] 400-80 mg 00 every 12 Medica l per tablet (twelve) Branc h hours. acetaminoph 2019-0 Yes [id number] 1{tbl} Take 1 Univers en-codeine 9-27 tablet by ity of (TYLENOL-CO 00:00: mouth [place] DEINE #3) 00 every 4 Medical 300-30 mg (four) Branch tablet hours as needed for Pain (scale 7-10). ondansetron 2019-0 Yes [id number] 4mg Take 1 Univers 4 mg 9-27 tablet by ity of disintegrat 00:00: mouth [place] ing tablet 00 every 8 Medica l (eight) Branch hours as needed for Nausea and Vomiting (N/V). sulfamethox 2019-0 Yes [id number] 1{tbl} Take 1 Univers azole-trime 9-27 tablet by ity of thoprim 00:00: mouth [place] 400-80 mg 00 every 12 Medica l per tablet (twelve) Branc h hours. acetaminoph 2019-0 Yes [id number] 1{tbl} Take 1 Univers en-codeine 9-27 tablet by ity of (TYLENOL-CO 00:00: mouth [place] DEINE #3) 00 every 4 Medical 300-30 mg (four) Branch tablet hours as needed for Pain (scale 7-10). ondansetron Yes [id number] 4mg Take 1 Univers 4 mg 9-27 tablet by ity of disintegrat 00:00: mouth [place] ing tablet 00 every 8 Medica l (eight) Branch hours as needed for Nausea and Vomiting (N/V). sulfamethox Yes [id number] 1{tbl} Take 1 Univers azole-trime 9-27 tablet by ity of thoprim 00:00: mouth [place] 400-80 mg 00 every 12 Medica l per tablet (twelve) Branc h hours. acetaminoph Yes [id number] 1{tbl} Take 1 Univers en-codeine 9-27 tablet by ity of (TYLENOL-CO 00:00: mouth [place] DEINE #3) 00 every 4 Medical 300-30 mg (four) Branch tablet hours as needed for Pain (scale 7-10). ondansetron Yes [id number] 4mg Take 1 Univers 4 mg 9-27 tablet by ity of disintegrat 00:00: mouth [place] ing tablet 00 every 8 Medica l (eight) Branch hours as needed for Nausea and Vomiting (N/V). Vital Signs Vital Name Observation Time Observation Value Comments Source Systolic blood 2019-09-06 21:04:00 135 mm[Hg] [facility] pressure [facility] Diastolic blood 2019-09-06 21:04:00 97 mm[Hg] [facility] pressure [facility] Heart rate 2019-09-06 21:02:00 74 /min [facility] Body height 2019-09-06 21:02:00 185.4 cm [facility] Body weight 2019-09-06 21:02:00 71.215 kg [facility] BMI 2019-09-06 21:02:00 20.71 kg/m2 [facility] Oxygen saturation 2019-09-06 21:02:00 98 /min [facility] in Arterial blood Medical Br anch by Pulse oximetry Systolic blood 2019-09-06 21:04:00 135 mm[Hg] Univer [facility] pressure [facility] Diastolic blood 2019-09-06 21:04:00 97 mm[Hg[facility] 2019-09-06 21:02:00 74 /min [facility] Body height 2019-09-06 21:02:00 185.4 cm [facility] Body weight 2019-09-06 21:02:00 71.215 kg [facility] BMI 2019-09-06 21:02:00 20.71 kg/m2 [facility] Oxygen saturation 2019-09-06 21:02:00 98 /min [facility] in Arterial blood Medical Br anch by Pulse oximetry Body height 2019-08-02 20:55:00 185.4 cm [facility] Body weight 2019-08-02 20:55:00 71.578 kg [facility] BMI 2019-08-02 20:55:00 20.82 kg/m2 [facility] Systolic blood 2019-08-02 20:55:00 118 mm[Hg] Univer [facility] Diastolic blood 2019-08-02 20:55:00 76 mm[Hg] [facility] Procedures Procedure Date / Time Performed Performing Clinician Sourc e XR HAND <3 VW RIGHT 2019-08-02 20:58:54 Daren Valdes [facility] Encounters Start End Encounter Admission Attending Care Care Encounter Source Date/Time Date/Time Type Type Clinicians Facility Department ID 2019-09-06 2019-09-06 [facility] [id number] 15:59:00 23:59:00 Encounter Arvind Medina [employer] [id number] Surgical [id number] Specialti [id number] es [address] [place] 2019-09-06 2019-09-06 [facility] [id number] Univers 15:59:00 23:59:00 Encounter Arvind Medina [employer] [id number] ity of Surgical [id number] Juan as Specialti [id number] Me dical es 809 [facility] 2019-09-06 2019-09-06 [facility] [id number] 15:50:51 16:05:51 Visit [facility] Health [id number] Surgical [id number] Specialti [id number] es [address] [place] 2019-09-06 2019-09-06 Office [facility] [id number] Univers 15:50:51 16:05:51 Visit [facility] Health [id number] it y of Surgical [id number] Juan as Specialti [id number] [place] dical es 198 [facility] 2019-09-06 2019-09-06 [id number] Univers 15:45:00 15:45:00 [facility] [id number] [place] [address] 2019-09-06 2019-09-06 [facility] [id number] Univers 15:45:00 15:45:00 [facility] 2019-08-02 2019-08-02 Outpatient [facility] [id number] Univers 14:58:53 23:59:00 [facility] 2019-08-02 2019-08-02 [facility] [id number] Univers 14:58:00 23:59:00 Encounter [facility] [id number] ity of Surgical [id number] Juan as Specialti [id number] [place] dical es 809 [facility] 2019-08-02 2019-08-02 Office [facility] [id number] Univers 14:52:33 15:07:33 Visit [facility] Health [id number] it y of Surgical [id number] Juan as Specialti [id number] Me dical es 198 [facility] 2019-06-28 2019-06-28 [facility] [id number] Univers 15:11:33 23:59:00 [facility] 2019-01-11 2019-01-11 Emergency E [facility] [place] [id number] 14:16:00 14:16:00 Results Test Description Test Time Test Comments Results Result Sour e Comments XR HAND <3 VW 2019-08-02 Good signs of Universi ty of RIGHT 21:01:24 callus formation [facility] dical on fifth Branch metacarpal fracture on AP view the fracture is apex dorsal with internal rotation
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
--- NOTE | 2021-08-14 13:53 | RAD REPORT ---
EXAM DESCRIPTION: RAD - Knee Right 3 View - 08/14/2021 1:45 pm CLINICAL HISTORY: PAIN COMPARISON: No comparisons FINDINGS: No fracture, dislocation or periosteal reaction.Trace amount of fluid in the joint space. No patella tendon injury seen. No joint space narrowing. No foreign body or other soft tissue abnorma lity. IMPRESSION: Trace amount of joint effusion suspected with no acute bone finding. Clinical concerns for internal derangement or occult bony injury could be further assessed with MR im aging.
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
[2021-08-14 14:51] VITALS: TEMP 98.6
[2021-08-14 14:52] VITALS: BP 170/94; O2SAT 99
== END 2021-08-14 14:31 | disposition home or self-care (01) ==
LOC: ER 12:17
DX: M54.2 Cervicalgia (principal); M25.561 Pain in right knee; V49.40XA Driver injured in collision with unspecified motor vehicles in traffic accident, initial encounter; I10 Essential (primary) hypertension; Z72.0 Tobacco use; Z88.1 Allergy status to other antibiotic agents
CPT/HCPCS: 70450; 71250; 72125; 99284

== ENCOUNTER 2021-09-13 08:42 | Emergency (ER) | payer SELFPAY ==
--- OUTSIDE RECORDS SUMMARY | 2021-09-13 08:45 | XMS REPORT | Continuity of Care Document ---
:1975 Author Organization [facility] t Address [address] [place] [address] Care Team Providers Name Role Phone PCP, [...] ty to 03-19 ity of adverse 00:00: [place] reaction [address] [place] [address] LEVOFLOX DRUG Active Hives 2018-0 Univers ACIN INGREDI 03-19 ity of 00:00: [address] Social History Social Habit Start Date Stop Date Quantity Comments Source Sex Assigned At Uni [facility] Smoking Status Start Date Stop Date Source Current every day smoker 2019-09-06 00:00:00 Uni [facility] Medications Ordered Filled Start Stop Current Ordering Indication Dosage Frequency Signature Comments Components Source Medication Medication Date Date Medication? Clinician (SIG) Name Name traMADol 50 2018-06 Yes TK ONE T Un ksenia mg tablet 2-30 PO Q 8 H ity of 00:00: PRN P [address] traMADol 50 2018-06 Yes TK ONE T Un ksenia mg tablet 2-30 PO Q 8 H ity of 00:00: PRN P [place] [facility] traMADol 50 2018-06 Yes TK ONE T Un ksenia mg tablet 2-30 PO Q 8 H ity of 00:00: PRN P [place] [facility] traMADol 50 2018-06 Yes TK ONE T Un [place] mg tablet 2-30 PO Q 8 H ity of 00:00: PRN P [place] [facility] traMADol 50 2018-06 Yes TK ONE T Un [place] mg tablet 2-30 PO Q 8 H ity of 00:00: PRN P [place] [facility] traMADol 50 2018-06 Yes TK ONE T Un [place] mg tablet 2-30 PO Q 8 H ity of 00:00: PRN P [place] 00 [facility] sulfamethox 0 Yes [id number] 1{tbl} Take 1 Univers azole-trime 9-27 tablet by ity of thoprim 00:00: mouth [place] 400-80 mg 00 every 12 Medica l per tablet (twelve) Branc h hours. acetaminoph Yes [id number] 1{tbl} Take 1 Univers en-codeine 9-27 tablet by ity of (TYLENOL-CO 00:00: mouth [place] DEINE #3) 00 every 4 Medical 300-30 mg (four) Branch tablet hours as needed for Pain (scale 7-10). ondansetron 0 Yes [id number] 4mg Take 1 Univers 4 mg 9-27 tablet by ity of disintegrat 00:00: mouth [place] ing tablet 00 every 8 Medica l (eight) Branch hours as needed for Nausea and Vomiting (N/V). sulfamethox 2019-0 Yes [id number] 1{tbl} Take 1 Univers azole-trime 9-27 tablet by ity of thoprim 00:00: mouth [place] 400-80 mg 00 every 12 Medica l per tablet (twelve) Branc h hours. acetaminoph 20190 Yes [id number] 1{tbl} Take 1 Univers en-codeine 9-27 tablet by ity of (TYLENOL-CO 00:00: mouth [place] DEINE #3) 00 every 4 Medical 300-30 mg (four) Branch tablet hours as needed for Pain (scale 7-10). ondansetron 2019-0 Yes [id number] 4mg Take 1 Univers 4 mg 9-27 tablet by ity of disintegrat 00:00: mouth [place] ing tablet 00 every 8 Medica l (eight) Branch hours as needed for Nausea and Vomiting (N/V). sulfamethox 2019-0 Yes [id number] 1{tbl} Take 1 Univers azole-trime 9-27 tablet by ity of thoprim 00:00: mouth [place] 400-80 mg 00 every 12 Medica l per tablet (twelve) Branc h hours. acetaminoph 2019-0 Yes [id number] 1{tbl} Take 1 Univers en-codeine 9-27 tablet by ity of (TYLENOL-CO 00:00: mouth [place] DEINE #3) 00 every 4 Medical 300-30 mg (four) Branch tablet hours as needed for Pain (scale 7-10). ondansetron 2019-0 Yes [id number] 4mg Take 1 Univers 4 mg 9-27 tablet by ity of disintegrat 00:00: mouth [place] ing tablet 00 every 8 Medica l (eight) Branch hours as needed for Nausea and Vomiting (N/V). sulfamethox 2019-0 Yes [id number] 1{tbl} Take 1 Univers azole-trime 9-27 tablet by ity of thoprim 00:00: mouth [place] 400-80 mg 00 every 12 Medica l per tablet (twelve) Branc h hours. acetaminoph 2019-0 Yes [id number] 1{tbl} Take 1 Univers en-codeine 9-27 tablet by ity of (TYLENOL-CO 00:00: mouth [place] DEINE #3) 00 every 4 Medical 300-30 mg (four) Branch tablet hours as needed for Pain (scale 7-10). ondansetron 2019-0 Yes [id number] 4mg Take 1 Univers 4 mg 9-27 tablet by ity of disintegrat 00:00: mouth [place] ing tablet 00 every 8 Medica l (eight) Branch hours as needed for Nausea and Vomiting (N/V). sulfamethox 2019-0 Yes [id number] 1{tbl} Take 1 Univers azole-trime 9-27 tablet by ity of thoprim 00:00: mouth [place] 400-80 mg 00 every 12 Medica l per tablet (twelve) Branc h hours. acetaminoph 2019-0 Yes [id number] 1{tbl} Take 1 Univers en-codeine 9-27 tablet by ity of (TYLENOL-CO 00:00: mouth [place] DEINE #3) 00 every 4 Medical 300-30 mg (four) Branch tablet hours as needed for Pain (scale 7-10). ondansetron Yes [id number] 4mg Take 1 Univers 4 mg 9-27 tablet by ity of disintegrat 00:00: mouth [place] ing tablet 00 every 8 Medica l (eight) Branch hours as needed for Nausea and Vomiting (N/V). sulfamethox Yes [id number] 1{tbl} Take 1 Univers azole-trime 9-27 tablet by ity of thoprim 00:00: mouth [place] 400-80 mg 00 every 12 Medica l per tablet (twelve) Branc h hours. acetaminoph Yes [id number] 1{tbl} Take 1 Univers en-codeine 9-27 tablet by ity of (TYLENOL-CO 00:00: mouth [place] DEINE #3) 00 every 4 Medical 300-30 mg (four) Branch tablet hours as needed for Pain (scale 7-10). ondansetron Yes [id number] 4mg Take 1 Univers 4 mg 9-27 tablet by ity of disintegrat 00:00: mouth [place] ing tablet 00 every 8 Medica l (eight) Branch hours as needed for Nausea and Vomiting (N/V). Vital Signs Vital Name Observation Time Observation Value Comments Source Systolic blood 2019-09-06 21:04:00 135 mm[Hg] [facility] pressure [facility] Diastolic blood 2019-09-06 21:04:00 97 mm[Hg] [facility] Heart rate 2019-09-06 21:02:00 74 /min [facility] Body height 2019-09-06 21:02:00 185.4 cm [facility] Body weight 2019-09-06 21:02:00 71.215 kg [facility] BMI 2019-09-06 21:02:00 20.71 kg/m2 [facility] Oxygen saturation 2019-09-06 21:02:00 98 /min [facility] in Arterial blood Medical Br anch by Pulse oximetry Systolic blood 2019-09-06 21:04:00 135 mm[Hg[facility] Diastolic blood 2019-09-06 21:04:00 97 [facility]Hg[facility] 2019-09-06 21:02:00 74 /min [facility] Body height 2019-09-06 21:02:00 [facility] Body weight 2019-09-06 21:02:00 71.215 kg [facility] BMI 2019-09-06 21:02:00 20.71 kg/m2 [facility] Oxygen saturation 2019-09-06 21:02:00 98 /min [facility] in Arterial blood [facility] Br anch by Pulse oximetry Body height 2019-08-02 20:55:00 185.4 cm [facility] Body weight 2019-08-02 20:55:00 71.578 kg [facility] BMI 2019-08-02 20:55:00 20.82 kg/m2 [facility] Systolic blood 2019-08-02 20:55:00 118 mm[Hg] [facility] Diastolic blood 2019-08-02 20:55:00 76 mm[facility]Hg[facility] Procedures Procedure Date / Time Performed Performing Clinician Sourc e XR HAND <3 VW RIGHT 2019-08-02 20:58:54 Daren Valdes [facility] Encounters Start End Encounter Admission Attending Care Care Encounter Source Date/Time Date/Time Type Type Clinicians Facility Department ID 2019-09-06 2019-09-06 [facility] [id number] 15:59:00 23:59:00 Encounter Arvind Medina Super [id number] Surgical [id number] Specialti [id number] es [address] [place] 2019-09-06 2019-09-06 [facility] [id number] Univers 15:59:00 23:59:00 Encounter Arvind Medina [facility] [id number] ity of Surgical [id number] Juan as Specialti [id number] Me dical es 809 [facility] 2019-09-06 2019-09-06 [facility] [id number] 15:50:51 16:05:51 Visit [facility] [id number] Surgical [id number] Specialti [id number] es [address] [place] 2019-09-06 2019-09-06 Office [facility] [id number] Univers 15:50:51 16:05:51 Visit [facility] [id number] it y of Surgical [id number] Juan as Specialti [id number] Ne dical es 198 [facility] 2019-09-06 2019-09-06 [id number] Univers 15:45:00 15:45:00 [facility] [id number] [place] [address] 2019-09-06 2019-09-06 [facility] [id number] Univers 15:45:00 15:45:00 [facility] 2019-08-02 2019-08-[address] [facility] [id number] Univers 14:58:53 23:59:00 [facility] 2019-08-02 2019-08-02 [facility] [id number] Univers 14:58:00 23:59:00 Encounter [facility] [id number] ity of Surgical [id number] Juan as Specialti [id number] Ne dical es 809 [facility] 2019-08-02 2019-08-02 Office [facility] [id number] Univers 14:52:33 15:07:33 Visit [facility] [id number] it y of Surgical [id number] Juan as Specialti [id number] Me dical es 198 [facility] 2019-06-28 2019-06-28 [facility] [id number] Univers 15:11:33 23:59:00 [facility] 2019-01-11 2019-01-11 Emergency E [facility] [id number] [facility] 14:16:00 14:16:00 Results Test Description Test Time Test Comments Results Result Sour e Comments XR HAND <3 VW 2019-08-02 Good signs of Universi ty of RIGHT 21:01:24 callus formation Zbigniew Ne dical on fifth Branch metacarpal fracture on AP view the fracture is apex dorsal with internal rotation
[2021-09-13 09:18] LABS: Hematocrit 44.3 % (39.6-49.0); Lymphocytes % 14.6 % (15.3-44.8); MPV 6.5 fL (7.6-11.3); RBC Red Blood Cell Count 5.08 M/uL (4.33-5.43)
[2021-09-13] MEDS ORDERED: NA CHLORIDE 0.9% 500 ML ONE (09:28)
[2021-09-13] MEDS ORDERED: ONDANSETRON 4 MG/2 ML VIAL ONE (09:28)
[2021-09-13] MEDS ORDERED: FAMOTIDINE 20 MG/2 ML VIAL IV ONE (09:29)
[2021-09-13 09:36] LABS: ALT/SGPT 45 U/L (12-78); AST/SGOT 29 U/L (15-37); Albumin 3.7 g/dL (3.4-5.0); Alkaline Phosphatase 140 U/L (45-117); BUN Blood Urea Nitrogen 4 mg/dL (7-18); Bicarbonate 25 mmol/L (21-32); Bilirubin Total 0.5 mg/dL (0.2-1.0); Glucose Level 122 mg/dL (74-106); Lipase 112 U/L (73-393); Potassium 3.6 mmol/L (3.5-5.1); Protein, Total 7.9 g/dL (6.4-8.2); Sodium Level 131 mmol/L (136-145)
--- NOTE | 2021-09-13 10:24 | RAD REPORT ---
EXAM DESCRIPTION: CT - Abdomen Pelvis W Contrast - 09/13/2021 10:00 am CLINICAL HISTORY: balck stools and hematemesis;Abd pain COMPARISON: Abdomen Pelvis W Contrast dated 01/24/2020 TECHNIQUE: Biphasic, helical CT imaging of the abdomen and pelvis was performed following 100 ml non -ionic IV contrast. No oral contrast administered. All CT scans are performed using dose optimization technique as appropriate and may include automated exposure control or mA/KV adjustment according to patient size. FINDINGS: No suspicious findings in the lung bases. Liver attenuation borderline to mildly fatty infiltrated. No focal liver lesions seen. No portal vein abnormality identified. No splenomegaly or focal splenic finding. Pancreas and peripancreatic tissue s are unremarkable. Gallbladder and biliary tree are also without suspicious finding. Symmetric renal function is seen with no hydronephrosis or suspicious renal mass. No pyelonephritis o r acute parenchymal process. No bladder abnormalities. No adrenal abnormalities. No dilated bowel loops or bowel wall thickening. No appendicitis findings. No acute GI process identi fiable. No free air, free fluid or inflammatory stranding. No mass or bulky lymphadenopathy. Fat only periu mbilical hernia is present with no acute component. No suspicious bony findings. IMPRESSION: Contrast enhanced CT abdomen and pelvis showing no significant or suspicious finding.
--- NOTE | 2021-09-13 10:58 | EDPHYS ---
Physician Documentation [facility] Name: Franco Thompson Age: 45 yrs Sex: Male : 1975 Arrival Date: 09/13/2021 Time: 08:44 Bed 15 Private MD: ED Physician Jeyson Pittman HPI: 09/13 09:41 This 45 yrs old Male presents to ER via Ambulatory with complaints of Bloody Stools, kdr vomiting blood, Abdominal Distention. 09:41 The patient presents to the emergency department vomiting blood, a small amount, bright kdr red, with rectal bleeding, a moderate amount, melena, with multiple such episodes. Onset: The symptoms/episode began/occurred acutely, yesterday. Abdominal pain: described as achy, constant, crampy, vague,\E\ waxing and waning. Modifying factors: The symptoms are alleviated by nothing, the symptoms are aggravated by movement, pressure. Associated signs and symptoms: Pertinent positives: vomiting, Pertinent negatives: chest pain, dizziness at rest, dizziness when standing, fever, shortness of breath, syncope, near-syncope. Severity of symptoms: At their worst the symptoms were moderate in the emergency department the symptoms are unchanged. The patient has not experienced similar symptoms in the past. The patient has not recently seen a physician. Historical: - Allergies: 08:49 Levaquin; ll1 - PMHx: 08:49 Hypertension; neuropathy; Pneumothorax; ll1 - PSHx: 08:49 None; ll1 - Immunization history:: Client reports having NOT received the Covid vaccine. - Social history:: Smoking status: Patient reports the use of cigarette tobacco products, smokes one-half pack cigarettes per day. ROS: 09:41 Constitutional: Negative for fever, chills, and weight loss, Eyes: Negative for injury, kdr pain, redness, and discharge, Neck: Negative for injury, pain, and swelling, Cardiovascular: Negative for chest pain, palpitations, and edema, Respiratory: Negative for shortness of breath, cough, wheezing, and pleuritic chest pain, Back: Negative for injury and pain, MS/Extremity: Negative for injury and deformity, Neuro: Negative for headache, weakness, numbness, tingling, and seizure activity. Psych: Negative for depression, anxiety, suicide ideation, homicidal ideation, and hallucinations, Allergy/Immunology: Negative for hives, rash, and allergies, Endocrine: Negative for neck swelling, polydipsia, polyuria, polyphagia, and marked weight changes, Hematologic/Lymphatic: Negative for swollen nodes, abnormal bleeding, and unusual bruising. 09:41 Abdomen/GI: Positive for abdominal pain, nausea and vomiting, vomiting, black/tarry stool. Exam: 09:41 Constitutional: This is a well developed, well nourished patient who is awake, alert, kdr and in no acute distress. Head/Face: Normocephalic, atraumatic. Eyes: Pupils equal round and reactive to light, extra-ocular motions intact. Lids and lashes normal. Conjunctiva and sclera are non-icteric and not injected. Cornea within normal limits. Periorbital areas with no swelling, redness, or edema. Neck: Trachea midline, no thyromegaly or masses palpated, and no cervical lymphadenopathy. Supple, full range of motion without nuchal rigidity, or vertebral point tenderness. No Meningismus. Chest/axilla: Normal chest wall appearance and motion. Nontender with no deformity. No lesions are appreciated. Cardiovascular: Regular rate and rhythm with a normal S1 and S2. No gallops, murmurs, or rubs. Normal PMI, no JVD. No pulse deficits. Respiratory: Lungs have equal breath sounds bilaterally, clear to auscultation and percussion. No rales, rhonchi or wheezes noted. No increased work of breathing, no retractions or nasal flaring. Back: No spinal tenderness. No costovertebral tenderness. Full range of motion. Skin: Warm, dry with normal turgor. Normal color with no rashes, no lesions, and no evidence of cellulitis. MS/ Extremity: Pulses equal, no cyanosis. Neurovascular intact. Full, normal range of motion. Neuro: Awake and alert, GCS 15, oriented to person, place, time, and situation. Cranial nerves II-XII grossly intact. Motor strength 5/5 in all extremities. Sensory grossly intact. Cerebellar exam normal. Normal gait. Psych: Awake, alert, with orientation to person, place and time. Behavior, mood, and affect are within normal limits. 09:41 Abdomen/GI: Inspection: abdomen appears normal, Bowel sounds: active, all quadrants, Palpation: soft, mild abdominal tenderness, in all quadrants, mass, is not appreciated, rebound tenderness, is not appreciated, voluntary guarding, is not appreciated. Vital Signs: 08:48 BP 151 / 103; Pulse 83; Resp 18; Temp 97.8; Pulse Ox 100% ; Weight 72.57 kg; Height 6 ll1 ft. 1 in. (185.42 cm); Pain 9/10; 08:48 Body Mass Index 21.11 (72.57 kg, 185.42 cm) ll1 MDM: 09:41 Data reviewed: vital signs, nurses notes, lab test result(s), radiologic studies. kdr Counseling: I had a detailed discussion with the patient and/or guardian regarding: the historical points, exam findings, and any diagnostic results supporting the discharge/admit diagnosis, lab results, radiology results, the need for outpatient follow up. 10:57 Patient medically screened. kdr 09/13 08:46 Order name: CBC with Diff; Complete Time: 10:47 kdr 09/13 08:46 Order name: CMP; Complete Time: 10:47 kdr 09/13 08:46 Order name: Lipase; Complete Time: 10:47 kdr 09/13 08:46 Order name: Type And Screen; Complete Time: 15:53 kdr 09/13 09:15 Order name: CT Abd/Pelvis - IV Contrast Only; Complete Time: 10:47 kdr 09/13 08:46 Order name: IV Saline Lock; Complete Time: 09:23 kdr 09/13 08:46 Order name: Labs collected and sent; Complete Time: 09:23 kdr Administered Medications: 09:31 Drug: Pepcid (famotidine) 20 mg Route: IVP; Site: left antecubital; aa5 09:48 Follow up: Response: No adverse reaction aa5 09:31 Drug: Zofran (Ondansetron) 4 mg Route: IVP; Site: left antecubital; aa5 09:48 Follow up: Response: No adverse reaction aa5 09:31 Drug: NS 0.9% 500 ml Route: IV; Rate: bolus; Site: left antecubital; aa5 11:03 Drug: Ativan (LORazepam) 1 mg Route: PO; ss 11:03 Drug: traMADol 50 mg Route: PO; ss Disposition Summary: 09/13/21 10:57 Discharge Ordered Location: Home kdr Problem: new kdr Symptoms: have improved kdr Condition: Stable kdr Diagnosis - Abdominal pain, Generalized kdr - Generalized anxiety disorder kdr Followup: kdr - With: Private Physician - When: 2 - 3 days - Reason: If symptoms return, Further diagnostic work-up, Recheck today's complaints, Continuance of care, Re-evaluation by your physician Discharge Instructions: - Discharge Summary Sheet kdr - Abdominal Pain, Adult, [id number] kdr - Panic Attack, [id number] kdr Forms: - Medication Reconciliation Form kdr - Thank You Letter kdr - Prescription Opioid Use kdr Prescriptions: - Ativan 1 mg Oral Tablet - take 1 tablet by ORAL route every 8 hours As needed; 3 tablet; Refills: 0, kdr Product Selection Permitted - Tramadol 50 mg Oral Tablet - take 1 tablet by ORAL route every 8 hours as needed; 6 tablet; Refills: 0, kdr Product Selection Permitted - Pepcid 20 mg Oral Tablet - take 1 tablet by ORAL route every 12 hours for 5 days; 10 tablet; Refills: 0, kdr Product Selection Permitted Signatures: Dispatcher [employer] Jeyson Parsons MD MD kdr Krystal Glez, RN RN aa5 Lorraine Dennis RN RN ss Can Latif RN RN ll1
--- NOTE | 2021-09-13 10:58 | ER ---
Nurse's Notes [facility] Name: Franco Thompson Age: 45 yrs Sex: Male : 1975 Arrival Date: 09/13/2021 Time: 08:44 Bed 15 Private MD: Diagnosis: Abdominal pain, Generalized;Generalized anxiety disorder Presentation: 09/13 08:48 Chief complaint: Patient states: Abd pain/bloating with bloody stools and vomit since ll1 08/14. No fever. Coronavirus screen: Vaccine status: Patient reports being unvaccinated. Client denies travel out of the [place] in the last 14 days. At this time, the client does not indicate any symptoms associated with coronavirus-19. Ebola Screen: Patient denies travel to an Ebola-affected area in the 21 days before illness onset. Initial Sepsis Screen: Does the patient meet any 2 criteria? No. Patient's initial sepsis screen is negative. Does the patient have a suspected source of infection? Yes: Acute abdominal pain. Risk Assessment: Do you want to hurt yourself or someone else? Patient reports no desire to harm self or others. Onset of symptoms was August 14, 2021. 08:48 Method Of Arrival: Ambulatory ll1 08:48 Acuity: NISSA 3 ll1 Historical: - Allergies: 08:49 Levaquin; ll1 - PMHx: 08:49 Hypertension; neuropathy; Pneumothorax; ll1 - PSHx: 08:49 None; ll1 - Immunization history:: Client reports having NOT received the Covid vaccine. - Social history:: Smoking status: Patient reports the use of cigarette tobacco products, smokes one-half pack cigarettes per day. Screenin:39 Abuse screen: Denies threats or abuse. Nutritional screening: No deficits noted. aa5 Tuberculosis screening: No symptoms or risk factors identified. Fall Risk None identified. Assessment: 09:05 General: Appears uncomfortable, Behavior is calm, cooperative. Pain: Complains of pain aa5 in right upper quadrant, left upper quadrant, right lower quadrant and left lower quadrant Pain currently is 9 out of 10 on a pain scale. Quality of pain is described as crampy, Pain began 2-3 days ago. Is intermittent. Neuro: Level of Consciousness is awake, alert, obeys commands, Oriented to person, place, time, situation. Cardiovascular: Heart tones S1 S2 present Rhythm is regular. Respiratory: Airway is patent Respiratory effort is even, unlabored, Respiratory pattern is regular, symmetrical. GI: Abdomen is round Bowel sounds present X 4 quads. Abdomen is tender to palpation X 4 quads. Reports bloating, diarrhea, bloody stool, nausea, vomiting. : No signs and/or symptoms were reported regarding the genitourinary system. EENT: No signs and/or symptoms were reported regarding the EENT system. Derm: Skin is pink, warm \T\ dry. Musculoskeletal: Range of motion: intact in all extremities. 09:48 Reassessment: Patient is alert, oriented x 3, equal unlabored respirations, skin aa5 warm/dry/pink. Pt to CT via wheelchair . Vital Signs: 08:48 BP 151 / 103; Pulse 83; Resp 18; Temp 97.8; Pulse Ox 100% ; Weight 72.57 kg; Height 6 ll1 ft. 1 in. (185.42 cm); Pain 9/10; 08:48 Body Mass Index 21.11 (72.57 kg, 185.42 cm) ll1 ED Course: 08:44 Patient arrived in ED. am2 08:45 Jeyson Pittman MD is Attending Physician. kdr 08:49 Triage completed. ll1 08:49 Arm band placed on. ll1 09:05 Patient has correct armband on for positive identification. Placed in gown. Bed in low aa5 position. Call light in reach. Side rails up X2. Pulse ox on. NIBP on. 09:05 Initial lab(s) drawn, by ED staff, sent to lab. Inserted saline lock: 22 gauge in left aa5 antecubital area, using aseptic technique. Blood collected. IV inserted by Can Latif RN. 09:23 Krystal Glez RN is Primary Nurse. aa5 10:02 CT Abd/Pelvis - IV Contrast Only In Process Unspecified. EDMS 11:21 No provider procedures requiring assistance completed. IV discontinued, intact, ss bleeding controlled, No redness/swelling at site. Pressure dressing applied. Administered Medications: 09:31 Drug: Pepcid (famotidine) 20 mg Route: IVP; Site: left antecubital; aa5 09:48 Follow up: Response: No adverse reaction aa5 09:31 Drug: Zofran (Ondansetron) 4 mg Route: IVP; Site: left antecubital; aa5 09:48 Follow up: Response: No adverse reaction aa5 09:31 Drug: NS 0.9% 500 ml Route: IV; Rate: bolus; Site: left antecubital; aa5 11:03 Drug: Ativan (LORazepam) 1 mg Route: PO; ss 11:03 Drug: traMADol 50 mg Route: PO; Outcome: 10:57 Discharge ordered by . kdr 11:21 Discharged to home ambulatory. 11:21 Condition: good 11:21 Discharge instructions given to patient, Instructed on discharge instructions, follow up and referral plans. medication usage, Demonstrated understanding of instructions, follow-up care, medications, Prescriptions given X 3. 11:22 Patient left the ED. ss Signatures: Dispatcher [employer] EDMS Jeyson Pittman MD MD kdr Calderon, Audri RN RN aa5 Lorraine Dennis RN RN Tawnya Espinoza Lynsay RN RN ll1
[2021-09-13] MEDS ORDERED: TRAMADOL HCL 50 MG TAB ONE (11:04)
[2021-09-13] MEDS ORDERED: LORAZEPAM 1 MG TABLET ONE (11:04)
[2021-09-13 11:37] VITALS: BP 151/103; TEMP 97.8; O2SAT 100
== END 2021-09-13 11:22 | disposition home or self-care (01) ==
LOC: ER 08:42
DX: R10.84 Generalized abdominal pain (principal); F41.1 Generalized anxiety disorder; R11.2 Nausea with vomiting, unspecified; I10 Essential (primary) hypertension; F17.210 Nicotine dependence, cigarettes, uncomplicated; Z88.1 Allergy status to other antibiotic agents
CPT/HCPCS: 36415; 74177; 80053; 83690; 85025; 86850; 86900; 86901; 96374; 96375; 99284; J2405; J7040; Q9967